=== PATIENT | male | born 1940 | race Caucasian/White ===

== ENCOUNTER 2024-03-03 20:32 | Outpatient (CLI) | payer MEDICARE, SELFPAY ==
--- OUTSIDE RECORDS SUMMARY | 2024-03-03 20:36 | XMS_ITS | Clinical Summary ---
Author Name Unknown Organization [facility] Address [place], [place] [address] Care Team Providers Care Credit Collection Associate Name Role Phone Darwin Catalan MD Primary Care Provider Darwin Becker MD Unavailable [phone] Allergies Active Allergy Reactions Criticality Noted Date Comments Fluorescein-Benoxinate *Unknown - Pt Doesn't Remember 11/15/2018 Pt reports that is unaware of this allergy Fluorometholone *Unknown,Edema 07/18/2019 Lisinopril Cough 06/20/2018 Proparacaine *Unknown - Pt Doesn't Remember 11/15/2018 Pt reports that is unaware of this allergy Medications Medication Sig Dispensed Refills Start Date End Date Status albuterol HFA (PROAIR HFA) 90 mcg/actuation inhalerIndications: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 1 Inhaler 3 4 Active lancets (ONETOUCH ULTRASOFT LANCETS)Indications:Con trolled type 2 diabetes mellitus without complication, unspecified snf insulin use status Dispense as covered per patient insurance. 3 Times per day. Dx: E11.9 300 Each 3 8 Active NebulizerIndications:Pn eumonia of left lung due to infectious organism, unspecified part of lung,Bronchospasm Nebulizer, disposable neb kit x 4, reuseable neb kit x 1, mask x 1, filters x 1. Frequency of use: daily; Medication: DuoNeb length of need: 12 months 1 Device 8 Active ONETOUCH ULTRA BLUE TEST STRIP stripIndications:Type 2 diabetes mellitus without complication, without long-term current use of insulin (HC) TEST TWO TIMES A DAY 200 Each 3 0 Active rivaroxaban (XARELTO) 15 mg tab tabletIndications:New onset atrial fibrillation (HC) Take 1 tablet by mouth once daily with evening meal. 90 tablet 3 0 Active metoprolol tartrate (LOPRESSOR) 50 mg tabletIndications:Atria l fibrillation with RVR (HC),Sepsis, due to unspecified organism, unspecified whether acute organ dysfunction present (HC),Essential hypertension Take 1 Tablet (50 mg) by mouth 2 times daily. 180 tablet. 3 1 Active glipiZIDE (GLUCOTROL) 5 mg tabletIndications:Diabe austen mellitus without complication (HC) Take 1 Tablet (5 mg) by mouth once daily before a meal. 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 12 g 3 3 Active atorvastatin (LIPITOR) 40 mg tabletIndications:Cardi ovascular disease Take 1 Tablet (40 mg) by mouth at bedtime. 90 Tablet 4 3 Active nitroglycerin (NITROSTAT) 0.4 mg sublingual tabletIndications:Cardi ovascular disease Place 1 Tablet (0.4 mg) under the tongue every 5 minutes if needed for Chest Pain. 3 Dose Limit per chest pain episode. Do not crush or chew. 3 Tablet 1 3 Active omeprazole 20 mg tabletIndications:Chron ic GERD Take 1 Tablet (20 mg) by mouth once daily. 90 Tablet 3 3 Active torsemide (DEMADEX) 10 mg tabletIndications:Pulmo nary HTN (HC) Take 1 Tablet (10 mg) by mouth once daily. 90 Tablet 3 3 Active calcitrioL (ROCALTROL) 0.25 mcg capsuleIndications:Seco ndary hyperparathyroidism (HC) Take one capsule (0.25 mg) three times a week (on Mondays, Wednesdays, and Fridays). 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 2ND CHOICE OR WHEEZING 2ND CHOICE. 540 mL 5 3 Active clopidogreL (PLAVIX) 75 mg tabletIndications:NSTEM I (non-ST elevated myocardial infarction) (HC) Take 1 Tablet (75 mg) by mouth once daily. 90 Tablet 3 3 Active clobetasol cream 0.05% (TEMOVATE) 0.05 % cream APPLY TO AFFECTED AREA ON BODY TWICE A DAY FOR 2 WEEKS , TAKE 2 WEEK BREAK THEN REPEAT NEEDED FOR FLARES 3 Active guaiFENesin (MUCINEX) 600 mg Extended-Release tablet Take 1 Tablet by mouth two times daily. 3 Active acetaminophen (TYLENOL EXTRA STRGTH) 500 mg tabletIndications:Acute gout of right foot, unspecified cause Take 1 Tablet (500 mg) by mouth every 6 hours if needed for Pain. Max acetaminophen dose: 4000mg in 24 hrs. 20 Tablet 4 Active allopurinoL (ZYLOPRIM) 300 mg tablet Take 300 mg by mouth once daily. 4 03/31/20 24 Active predniSONE (DELTASONE) 10 mg tabletIndications:Acute idiopathic gout of right ankle Take 1 Tablet (10 mg) by mouth once daily with a meal. Use as needed for gout flare up. 30 Tablet 4 Active spironolactone (ALDACTONE) 50 mg tabletIndications:Pulmo nary HTN (HC),SOB (shortness of breath) TAKE ONE-HALF TABLET BY MOUTH EVERY DAY -PT DUE FOR FOLLOW UP WITH CARDIOLOGY 45 Tablet 3 4 Active benzonatate (TESSALON) 200 mg capsuleIndications:Acut e cough,Cough, unspecified type TAKE ONE CAPSULE BY MOUTH THREE TIMES A DAY NEEDED FOR COUGH 30 Capsule 3 4 Active Active Problems Patient Care Coordination No te Formatting of this note migh t be different from the original. Watching grandkids grow up and family is what matters most to Chago. 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 What are Chago's challenges, stressors, or barriers? Weight, knee Problem Noted Date Diagnosed Date Secondary hyperparathyroidism 11/15/2023 HAIDER (acute kidney injury) 11/07/2023 COPD exacerbation 11/07/2023 NSTEMI (non-ST elevated myocardial infarction) 1 12/11/2022 Acute respiratory distress due to pneumonia 06/05 Arthritis of right glenohumeral joint 03/13/2023 Pulmonary HTN 02/08/2022 CKD (chronic kidney disease) stage 4, GFR 15-29 ml/min 02/08/2022 Coronary artery disease invo lving [place] coronary artery of [place] heart without angina pectoris 02/08/2022 Chronic left shoulder pain 02/08/2022 Arthritis of right knee 11/21/2021 Acquired varus deformity knee, right 11/21/2021 History of left knee replacement 11/21/2021 Arthritis of left acromioclavicular joint 2020 Arthritis of left glenohumeral joint 07/01/2021 Chronic renal disease, stage III 07/12/2020 Overview: Component Latest Ref Rng & Units 06/06/2020 06/07/2020 06/27/2020 06/28/2020 CREATININE 0.72 - 1.25 mg/dL 1.46 (H) 1.36 (H) 1.30 (H) 1.37 (H) BUN/CREAT RATIO 10 - 20 21 (H) 22 (H) 17 15 GFR if >60 ml/min/1.73m2 56 (L) >60 >60 >60 GFR if not >60 ml/min/1.73m2 46 (L) 50 (L) 53 (L) 50 (L) Component Latest Ref Rng & Units 07/05/2020 07/07/2020 CREATININE 0.72 - 1.25 mg/dL 1.70 (H) 1.78 (H) BUN/CREAT RATIO 10 - 20 22 (H) 20 GFR if >60 ml/min/1.73m2 47 (L) 45 (L) GFR if not >60 ml/min/1.73m2 39 (L) 37 (L) Iron deficiency anemia due to chronic blood loss 06/29/2020 Chronic atrial fibrillation 06/05/2020 Mixed hyperlipidemia 06/05/2020 Acute on chronic diastolic CHF (congestive heart failure) 06/04/2020 HUMBLE PSG 08/26/2019 AHI-26 09/05/2019 Hypoxia 12/20/2018 ACP (advance care planning) 11/21/2018 Overview: Patient has identified Health Care Agent(s): Yes Add Health Care Agents: Yes Health Care Agent(s): Primary Health Care Agent: Clarisa Navarro Relationship: Granddaughter (c) Secondary Health Care Agent: Nilo Abel Relationship: Daughter (c) Patient has Advance Care Plan Documents (Health Care Directive, POLST): Yes Advance Care Plan Documents: Health Care Directive Patient has identified Specific Treatment Preferences: Yes How have preferences been verified: verbal and HCD Specific Treatment Preferences: a.) Code Status: CPR/Attempt Resuscitation If in a vegetative state, I would want all the treatments recommended by my health care team until they agree that such treatments are harmful and no longer helpful. Tri Joshua, Care Guide, ................11/21/2018 10:08 AM Anticoagulation monitoring, INR range 2-3 2016 Morbid obesity 08/30/2016 Pulmonary nodules 01/03/2015 Adenomatous colon polyp 01/01/2014 Type II diabetes mellitus with complication 05/06 Vascular disease 10/09/2008 Thrombocytopenia 12/06/2007 Overview: possible drug related HYPERTENSION 11/06/2006 Asthma 11/06/2006 Hyperlipidemia 11/06/2006 GERD with esophagitis Overview: EGD Dysphagia Resolved Problems Problem Noted Date Diagnosed Date Resolved Date Type 2 diabetes mellitus wit h stage 3 chronic kidney disease, with long-term current use of insulin, unspecified whether stage 3a or 3b CKD 11/15/2023 02/20/2024 HUMBLE (obstructive sleep apnea) 10/10/2023 02/20/2024 SOB (shortness of breath) 02/08/2022 Iron deficiency anemia 06/29/202008/07 Longstanding persistent atrial fibrillation 06/29/2020 08/07/2022 Chronic respiratory acidosis 06/28/2020 02/20/2024 Pneumonia due to infectious organism 06/27/2020 08/07/2022 COPD with acute exacerbation 06/05/2020 08/07/2022 Viral sepsis 06/04/2020 08/07/2022 Lactic acid increased 06/04/20202021 Acute aspiration pneumonia 06/04/2020 1 Suspected COVID-19 virus infection 06/04/2020 08/07/2022 Sepsis with acute organ dysfunction 06/04/2020 08/07/2022 COPD with acute exacerbation 12/20/2018 08/07/2022 Atrial fibrillation 03/29/2017 08/07/20 22 Atrial fibrillation, unspecified type 03/29/2017 08/07/2022 Left arm pain 12/24/2014 08/07/2022 ARTERIOSCLEROTIC CARDIOVASCULAR DISEASE 11/06/2006 02/20/2024 Chronic airway obstruction, not elsewhere classified 11/06/2006 08/07/2022 History of colon polyps 02/03 Atrial fibrillation 08/07/20 22 Atrial fibrillation with RVR 08/07/2022 Encounters Date Type Department Care Team Description 02/20/2024 10:30 AM CDT Office Visit [facility] [address] [place] [address] Jos Delgadillo MD Sleep Follow-up 02/20/2024 Travel 02/13/2024 10:00 AM CDT Office Visit [facility] [address] [phone] Minor York MD Follow Up 02/13/2024 Travel 02/06/2024 10:00 AM CDT Office Visit [address] [phone] Darwin Catalan MD Toe Pain/problem (Right great toe painful x 1 day); Derm Problem (Bruising ) 02/06/2024 Travel 02/06/[address] [place] [address] Darwin Catalan MD Appointment (RT ARM BRUISING / PER TRIAGE) 02/06/2024 Nurse Triage [address] [place] [address] Darwin Catalan MD Skin Problem 02/06/[address] [place] [address] Darwin Catalan MD Error-please disregard 01/29/[address] [place] [address] Darwin Catalan MD Refill Request (Benzonatate) 01/16/[address] [place] [address] Darwin Catalan MD Results 01/12/[address] [place] [address] Darwin Catalan MD Refill Request (Spironolactone) 01/10/2024 10:30 AM MANAGER DRUG Orders Only [address] [place] [address] Lab, [facility] 01/10/2024 Travel 01/02/2024 1:00 PM MANAGER DRUG Office Visit [address] [place] [address] Darwin Catalan MD Hospital F/U (DOD 12/26/23 Gout ) 01/02/2024 Travel 12/31/2023 12:48 PM MANAGER DRUG - 12/31/2023 11:59 PM MANAGER DRUG Hospital Encounter [facility] [address] [facility] [place] [address] Darwin Catalan MD 12/31/2023 Travel 12/26/2023 10:35 AM MANAGER DRUG - 12/26/2023 11:48 AM MANAGER DRUG Emergency [facility] [address] [facility] [place] [address] Minor Winters MD Acute gout of right foot, unspecified cause (Primary Dx) Discharge Disposition: Home Self Care 12/26/2023 Telephone [facility] [address] [place] [address] Darwin Catalan MD Appointment 12/26/2023 Travel 12/24/2023 12:47 PM MANAGER DRUG - 12/24/2023 11:59 PM MANAGER DRUG Hospital Encounter [facility] [address] [facility] [place] [address] Darwin Catalan MD 12/24/2023 Travel 12/21/2023 12:50 PM MANAGER DRUG - 12/21/2023 11:59 PM MANAGER DRUG Hospital Encounter [facility] [address] [facility] [place] [address] Darwin Catalan MD 12/21/2023 Travel 12/19/2023 12:50 PM MANAGER DRUG - 12/19/2023 11:59 PM MANAGER DRUG Hospital Encounter [facility] [address] [facility] [place] [address] Darwin Catalan MD 12/19/2023 Travel 12/18/2023 Refill [facility] [address] [place] [address] Darwin Catalan MD Refill Request (Benzonatate) 12/17/2023 12:42 PM MANAGER DRUG - 12/17/2023 11:59 PM MANAGER DRUG Hospital Encounter [facility] [address] [place] [address] Darwin Catalan MD 12/17/2023 Travel 12/14/2023 12:47 PM MANAGER DRUG - 12/14/2023 11:59 PM MANAGER DRUG Hospital Encounter [facility] [address] [facility] [place] [address] Darwin Catalan MD 12/14/2023 Travel 12/13/2023 Telephone [facility] [address] [place] [address] Darwin Catalan MD 12/12/2023 1:02 PM MANAGER DRUG - 12/12/2023 11:59 PM MANAGER DRUG Hospital Encounter [facility] [address] [facility] [place] [address] Darwin Catalan MD 12/12/2023 Travel 12/10/2023 2:40 PM MANAGER DRUG Office Visit [facility] [address] [place] [address] Darwin Catalan MD Medicare ANNUAL (subsequent) Visit; Diabetes 12/10/2023 Travel 12/07/2023 1:02 PM MANAGER DRUG - 12/07/2023 11:59 PM MANAGER DRUG Hospital Encounter [facility] [address] [place] [address] Darwin Catalan MD 12/07/2023 Travel 12/05/2023 1:01 PM MANAGER DRUG - 12/05/2023 11:59 PM MANAGER DRUG Hospital Encounter [facility] [address] [place] [address] Darwin Catalan MD 12/05/2023 Travel 12/03/2023 1:02 PM MANAGER DRUG - 12/03/2023 11:59 PM MANAGER DRUG Hospital Encounter [facility] [address] [place] [address] Darwin Catalan MD 12/03/2023 Travel from Last 3 Months Immunizations Name Administration Dates Next Due AMB Influenza, IIV3 (Age >=3 years)(Flu Clinic Only) 08/25/2009 COVID-19 Vaccine Spikevax (M oderna 50mcg/0.5mL) 12YO+ [id number] Formula PF 08/30/2023 COVID-19 vaccine ([employer] 30mcg/0.3mL) 12YO+ BIVALENT PF, MDV 07/19/2022 COVID-19 vaccine ([employer] 30mcg/0.3mL) PF MDV 12/27/2020,12/05/2020 Influenza A (H1N1), Inactiva lm (Age >=3 Years) 11/17/2009 Influenza Virus, Unspecified 07/25/2013, 11/05/2011,08/05/2011,2009,08/05/2009,08/05/2008,08/05/2007 Influenza, High-dose Inactivated 07/21/2016 Influenza, IIV3 (Age >=3 years) 08/05/20 12,07/20/2011,08/25/2009,2007,09/03/2007,09/18/2006,08/21/2005,1 ,08/29/2003,09/19/2002 Influenza, IIV4 07/22/2014 Influenza, Inactivated AIIV4 (Age 65+ Years) Preserv Free 07/25/2023,07/19/2022,07/22/2021,2019 Influenza, Inactivated IIV3 (Age 65+ Years) Preserv Free 07/16/2019,08/15/2018,08/09/2017 Pneumococcal Poly,23-Valent (Pneumovax) 08/15/2018,10/07/2008,09/19/2002,2001 Pneumococcal conj 13-Valent (Prevnar 13) 01/19/2016 Pneumococcal, Unspecified 08/05/2007 TD, UNSPECIFIED 11/05/2005 Td (Age >=7 Years) 11/26/2002 Tdap 08/14/2019,07/25/2013 Zoster (Shingrix-RZV, recombinant) 12/26/2018, Zoster (Zostavax-ZVL, live) 04/12/2012 Family History Medical History Relation Name Comments Cancer-colon Brother Cancer-colon Mother AND AUNT Heart Disease Mother ASCVD Stroke Mother Diabetes Other 1 FAMILY H/O Cancer Other 2 LUNG UNCLE Relation Name Status Comments Brother Mother Other 1 Other 2 Social History Tobacco Use Types Packs/Day Years Used Date Smoking Tobacco: Former Cigarettes 2 24 0 02/04/1956 - 11/11/1979 Passive Smoke Exposure: Past Smokeless Tobacco: Never Tobacco Cessation:Counseling Given: Not Answered Comments:quit in the Alcohol Use Standard Drinks/Week Comments No 0 (1 standard drink = 0.6 oz pur e alcohol) PHQ-2 Answer Date Recorded PHQ-2 TOTAL SCORE 0 12/10/2023 Social Connections Answer Date Recorded Frequency of Communication with Friends and Fami ly 0 06/18/2023 Financial Resource Strain Answer Date R ecorded Difficulty of Paying Living Expenses 3 06/18/2023 Difficulty of Paying Living Expenses Not on file 06/18/2023 Food Insecurity Answer Date Recorded Worried About Running Out of Food in the Last Ye ar 1 06/18/2023 Transportation Needs Answer Date Record ed Lack of Transportation (Medical) 1 06/18/2023 Housing Stability Answer Date Recorded Unable to Pay for Housing in the Last Year 1 06/18/2023 Sex and Gender Information Value Date Recorded Sex Assigned at Not on file Gender Identity Not on file Sexual Orientation Not on file Obstetrics History Last Filed Vital Signs Vital Sign Reading Time Taken Comments Blood Pressure 91/58 02/20/2024 10:15 AM CDT Pulse 70 02/20/2024 10:15 AM CDT Temperature 36.4 ??C (97.6 ??F) 12/26/2023 1 0:41 AM MANAGER DRUG Respiratory Rate 18 12/26/2023 10:4 1 AM MANAGER DRUG Oxygen Saturation 95% 02/20/2024 10: 15 AM CDT Inhaled Oxygen Concentration - - Weight 88.4 kg (194 lb 12.8 oz) 024 10:15 AM CDT Height 172.7 cm (5' 8) 02/20/2024 10:1 5 AM CDT Body Mass Index 29.62 02/20/2024 10:15 AM CDT Plan of Treatment Upcoming Encounters Date Type Department Care Team (Late st Contact Info) Description 05/14/2024 3:30 PM CDT Office Visit [facility] [address] [place] [address] Jos Delgadillo MD [address] [place] [address] Health Maintenance Due Date Last Done Comments Influenza for age 65+ 07/06/2024 07/25/2023 , 07/19/2022, 07/22/2021, Additional history exists Medicare Wellness for age 65+ 12/10/2024, 11/02/2022, 12/03/2019, Additional history exists Depression screening for age 12+ 12/13/2024 12/13/2023, 12/12/2023, 12/10/2023, Additional history exists BMI (ht and wt on same day) for age 18+ 02/19/2025 02/20/2024, 02/06/2024, 01/02/2024, Additional history exists Tetanus booster 08/14/2029 08/14/2019, 07/07, 11/05/2005, Additional history exists Pneumococcal series for age 65+ Completed 08/15/2018, 01/19/2016, 10/07/2008, Additional history exists Zoster (shingles) series for age 50+ Completed 12/26/2018, 10/18/2018, 04/12/2012 Tdap Completed 08/14/2019, 07/25/2013 COVID-19 vaccine series Completed 08/30/20, 07/19/2022, 09/19/2021, Additional history exists Medical Devices Implanted Type Area [employer] Electrical Systems Designer Device Identifier Shelf Expiration Date Model / Serial / Lot Post Shoulder Glenoid 6.5x30mm Perform+ Rev - [id number] Implanted:Qty: 1 on 05/17/2022 by Stuart Spring MD at [facility] Left: Shoulder [employer] [id number] / / Screw Shoulder 26mm Perform+ Periph - [id number] Implanted:Qty: 2 on 05/17/2022 by Stuart Spring MD at [facility] Left: Shoulder [employer] [id number] / / Screw Shoulder 22mm Perform+ Periph - [id number] Implanted:Qty: 1 on 05/17/2022 by Stuart Spring MD at [facility] Left: Shoulder [employer] [id number] / / Baseplate Glenoid 29mm 15 Deg Perform+ Full Wedge - [id number] Implanted:Qty: 1 on 05/17/2022 by Stuart Spring MD at [facility] Left: Shoulder [employer] 08/31/2026 [id number] / [id number] / Glenoid 39mm Perform+ Rev - [id number] Implanted:Qty: 1 on 05/17/2022 by Stuart Spring MD at [facility] Left: Shoulder [employer] 09/09/2026 [id number] / [id number] / Baseplate Hum Sz 0 Ascend Rev Flex Hi Off - [id number] Implanted:Qty: 1 on 05/17/2022 by Stuart Spring MD at [facility] Left: Shoulder [employer] 12/20/2026 [id number] / [id number] / Stem Hum Sz 5b Ascend Flex Std - [id number] Implanted:Qty: 1 on 05/17/2022 by Stuart Spring MD at [facility] Left: Shoulder [employer] 05/25/2026 [id number] / [id number] / Liner Hum Sz 39mm +6 Ascend Flex - [id number] Implanted:Qty: 1 on 05/17/2022 by Stuart Spring MD at [facility] Left: Shoulder [employer] 12/27/2025 [id number] / [id number] / Procedures Procedure Name Priority Date/Time Associated Diagnosis Comments CBC W PLT NO DIFF Routine 01/10/2024 10: 07 AM MANAGER DRUG Other iron deficiency anemia SCAN-CARDIAC REHABILITATION 12/31/2023 1:16 PM MANAGER DRUG C-REACTIVE PROTEIN STAT 12/26/2023 11 :13 AM MANAGER DRUG URIC ACID STAT 12/26/2023 11:13 AM MANAGER DRUG BASIC METABOLIC PANEL STAT 12/26/2023 11:13 AM MANAGER DRUG CBC W PLT NO DIFF STAT 12/26/2023 11: 13 AM MANAGER DRUG SCAN-CARDIAC REHABILITATION 12/24/2023 1:24 PM MANAGER DRUG SCAN-CARDIAC REHABILITATION 12/21/2023 1:12 PM MANAGER DRUG SCAN-CARDIAC REHABILITATION 12/19/2023 1:12 PM MANAGER DRUG SCAN-CARDIAC REHABILITATION 12/17/2023 1:24 PM MANAGER DRUG SCAN-CARDIAC REHABILITATION 12/14/2023 1:24 PM MANAGER DRUG SCAN-CARDIAC REHABILITATION 12/12/2023 1:18 PM MANAGER DRUG URINALYSIS MICROSCOPIC Routine 3:43 PM MANAGER DRUG Essential hypertension PROTEIN/CREAT RATIO,URINE Routine 12/10/2023 3:43 PM MANAGER DRUG Type 2 diabetes mellitus with stage 3 chronic kidney disease, without long-term current use of insulin, unspecified whether stage 3a or 3b CKD (HC) UA W/ SEDIMENT EXAM REFLEXED PER CRITERIA Routine 12/10/2023 3:43 PM MANAGER DRUG Essential hypertension HEMOGLOBIN A1C Routine 12/10/2023 3:21 PM MANAGER DRUG Type 2 diabetes mellitus with stage 3 chronic kidney disease, without long-term current use of insulin, unspecified whether stage 3a or 3b CKD (HC) LIPID PANEL W REFLEX MEASURED LDL Routine 12/10/2023 3:21 PM MANAGER DRUG Essential hypertension TSH Routine 12/10/2023 3:21 PM MANAGER DRUG Mixed hyperlipidemia CBC W PLT NO DIFF Routine 12/10/2023 3:2 1 PM MANAGER DRUG Essential hypertension BASIC METABOLIC PANEL Routine 12/10/2023 3:21 PM MANAGER DRUG Essential hypertension SCAN-CARDIAC REHABILITATION 12/07/2023 1:27 PM MANAGER DRUG SCAN-CARDIAC REHABILITATION 12/05/2023 1:22 PM MANAGER DRUG SCAN-CARDIAC REHABILITATION 12/03/2023 1:30 PM MANAGER DRUG from Last 3 Months Results * (ABNORMAL) CBC W PLT NO DIFF (01/10/2024 10:07 AM MANAGER DRUG) Only the most recent of3 resultswithin the time period is included. Pathologist [facility] WHITE BLOOD COUNT 11.6(H) 4.5 - 11.0 thou/cu mm 01/10/2024 10:23 AM [facility] RED BLOOD COUNT 3.63(L) 4.30 - 5.90 mil/cu mm 01/10/2024 10:23 AM [facility] HEMOGLOBIN 9.6(L) 13.5 - 17.5 g/dL 01/10/2024 10:23 AM [facility] HEMATOCRIT 33.0(L) 37.0 - 53.0 % 01/10/2024 10:23 AM [facility] MCV 91 80 - 100 fL 01/10/2024 10:23 AM [facility] MCH 26.4 26.0 - 34.0 pg 01/10/2024 10:23 AM [facility] MCHC 29.1(L) 32.0 - 36.0 g/dL 01/10/2024 10:23 AM [facility] RDW 18.1(H) 11.5 - 15.5 % 01/10/2024 10:23 AM [facility] PLATELET COUNT 304 140 - 440 thou/cu mm 01/10/2024 10:23 AM [facility] MPV 9.0 6.5 - 11.0 fL 01/10/2024 10:23 AM [facility] Blood BLOOD SPECIMEN / Unknown Venipuncture / Unknown 01/10/2024 10:07 AM MANAGER DRUG 01/10/2024 10:08 AM MANAGER DRUG Darwin Catalan MD HEMATOLOGY [facility] [address] [place] [address] * SCAN-CARDIAC REHABILITATION (12/31/2023 1:16 PM MANAGER DRUG) Only the most recent of10 resultswithin the time period is included. Scanner OTHER * C-REACTIVE PROTEIN (12/26/2023 11:13 AM MANAGER DRUG) C-REACTIVE PROTEIN <0.3 <0.5 mg/dL 12/26/2023 11:38 AM [facility] Blood BLOOD SPECIMEN / Unknown Venipuncture / Unknown 12/26/2023 11:13 AM MANAGER DRUG 12/26/2023 11:16 AM MANAGER DRUG Minor Winters MD CHEMISTRY [facility] [address] [place] [address] * (ABNORMAL) URIC ACID (12/26/2023 11:13 AM MANAGER DRUG) URIC ACID 9.2(H) 3.4 - 7.0 mg/dL 12/26/2023 11:35 AM [facility] Blood BLOOD SPECIMEN / Unknown Venipuncture / Unknown 12/26/2023 11:13 AM MANAGER DRUG 12/26/2023 11:16 AM MANAGER DRUG Minor Winters MD CHEMISTRY [facility] [address] [place] [address] * (ABNORMAL) BASIC METABOLIC PANEL (12/26/2023 11:13 AM MANAGER DRUG) Only the most recent of2 resultswithin the time period is included. SODIUM 143 136 - 145 mmol/L 12/26/2023 11:35 AM [facility] POTASSIUM 4.8 3.5 - 5.1 mmol/L 12/26/2023 11:35 AM [facility] CHLORIDE 107 98 - 107 mmol/L 12/26/2023 11:35 AM [facility] CO2,TOTAL 27 22 - 29 mmol/L 12/26/2023 11:35 AM [facility] ANION GAP 9 5 - 18 12/26/2023 11:35 AM [facility] GLUCOSE 109(H) 70 - 99 mg/dL 12/26/2023 11:35 AM [facility] CALCIUM 9.2 8.8 - 10.2 mg/dL 12/26/2023 11:35 AM [facility] BUN 31(H) 8 - 23 mg/dL 12/26/2023 11:35 AM [facility] CREATININE 2.31(H) 0.70 - 1.20 mg/dL 12/26/2023 11:35 AM [facility] BUN/CREAT RATIO 13 10 - 20 11:35 AM [facility] eGFR 27(L) >90 mL/min/1.7 3m2 12/26/2023 11:35 AM MANAGER DRUG [facility] Comment:As of 2022, eG FR is calculated by the CKD-EPI creatinine equation without race adjustment. ??eGFR can be influenced by muscle mass, exercise, and diet. ??The reported eGFR is an estimation only and is only applicable if the renal function is stable. Blood BLOOD SPECIMEN / Unknown Venipuncture / Unknown 12/26/2023 11:13 AM MANAGER DRUG 12/26/2023 11:16 AM MANAGER DRUG Minor Winters MD CHEMISTRY Performing Organization Address City/[facility]/ZIP Co de Phone Number [facility] [address] [place] [address] * (ABNORMAL) URINALYSIS MICROSCOPIC (12/10/2023 3:43 PM MANAGER DRUG) RBC 0-2 0-2, None Seen /HPF 12/10/2023 4:00 PM [facility] WBC 11-25(A) 0-2, 3-5, None Seen /HPF 12/10/2023 4:00 PM [facility] BACTERIA Few None Seen, Rare, Few Bacteria/ HPF 12/10/2023 4:00 PM [facility] EPITHELIAL CELLS Few None Seen, Few Epi/HPF 12/10/2023 4:00 PM [facility] WHITE CELL CLUMPS Present(A) (none) 12/10/2023 4:00 PM [facility] Urine URINE SPECIMEN / Unknown Non-Blood / Unknown 12/10/2023 3:43 PM MANAGER DRUG 12/10/2023 3:43 PM MANAGER DRUG Darwin Catalan MD URINE Performing Organization Address [facility]/ZIP Co de Phone Number [facility] [address] [place] [address] * PROTEIN/CREAT RATIO,URINE (12/10/2023 3:43 PM MANAGER DRUG) PROTEIN QUANT,RAND URINE 7 1 - 14 mg/dL 12/10/2023 4:24 PM [facility] CREAT,RANDOM URINE 68.4 39.0 - 259.0 mg/dL 12/10/2023 4:24 PM [facility] PROT/CREAT RATIO,UR 0.1 <0.2 12/10/2023 4:24 PM [facility] Urine URINE SPECIMEN / Unknown Non-Blood / Unknown 12/10/2023 3:43 PM MANAGER DRUG 12/10/2023 3:43 PM MANAGER DRUG Darwin Catalan MD URINE [facility] [address] [place] [address] * (ABNORMAL) UA W/ SEDIMENT EXAM REFLEXED PER CRITERIA (12/10/2023 3:43 PM MANAGER DRUG) COLOR Yellow Yellow Color 12/10/2023 3:57 PM [facility] CLARITY Clear Clear Clarity 12/10/2023 3:57 PM [facility] SPECIFIC GRAVITY,URINE 1.015 1.010, 1.015, 1.020, 1.025 12/10/2023 3:57 PM [facility] PH,URINE 5.5 6.0, 7.0, 8.0, 5.5, 6.5, 7.5, 8.5 12/10/2023 3:57 PM [facility] UROBILINOGEN, QUALITATIVE Normal Normal EU/dl 12/10/2023 3:57 PM [facility] PROTEIN, URINE Negative Negative mg/dL 12/10/2023 3:57 PM [facility] GLUCOSE, URINE Negative Negative mg/dL 12/10/2023 3:57 PM [facility] KETONES,URINE Negative Negative mg/dL 12/10/2023 3:57 PM [facility] BILIRUBIN,URI NE Negative Negative 12/10/2023 3:57 PM [facility] OCCULT BLOOD,URINE Negative Negative 12/10/2023 3:57 PM [facility] NITRITE Negative Negative 12/10/2023 3:57 PM [facility] LEUKOCYTE ESTERASE Small(A) Negative 12/10/2023 3:57 PM [facility] Urine URINE SPECIMEN / Unknown Non-Blood / Unknown 12/10/2023 3:43 PM MANAGER DRUG 12/10/2023 3:43 PM MANAGER DRUG Darwin Catalan MD URINE Performing Organization Address City/[facility]/ZIP Co de Phone Number [facility] [address] [place] [address] * (ABNORMAL) LIPID PANEL W REFLEX MEASURED LDL (12/10/2023 3:21 PM MANAGER DRUG) CHOLESTEROL,TOTAL 118 100 - 199 mg/dL 12/10/2023 4:25 PM [facility] Comment: Cholesterol, Total Reference Ranges Desirable <200 mg/dL Borderline 200-239 mg/dL High >=240 mg/dL TRIGLYCERIDES 139 <150 mg/dL 12/10/2023 4:25 PM [facility] HDL CHOLESTEROL 29(L) >40 mg/dL 4:25 PM [facility] NON-HDL CHOLESTEROL 89 <145 mg/dl 12/10/2023 4:25 PM [facility] CHOL/HDL RATIO 4.07 <4.50 12/10/2023 4:25 PM [facility] LDL CHOLESTEROL 61 <=130 mg/dL 12/10/2023 4:25 PM [facility] VLDL CHOLESTEROL 28 <=30 mg/dL 12/10/2023 4:25 PM [facility] PROVIDER ORDERED STATUS RANDOM 12/10/2023 4:25 PM [facility] Blood BLOOD SPECIMEN / Unknown Venipuncture / Unknown 12/10/2023 3:21 PM MANAGER DRUG 12/10/2023 3:24 PM MANAGER DRUG Darwin Catalan MD CHEMISTRY [facility] [address] [place] [address] * (ABNORMAL) TSH (12/10/2023 3:21 PM MANAGER DRUG) TSH 5.18(H) 0.27 - 4.20 uIU/mL 12/10/2023 4:25 PM MANAGER DRUG [facility] Blood BLOOD SPECIMEN / Unknown Venipuncture / Unknown 12/10/2023 3:21 PM MANAGER DRUG 12/10/2023 3:24 PM MANAGER DRUG Narrative [facility] - 12/10/2023 4:25 PM MANAGER DRUG In Adults, TSH values between 5.00 and 10.00 uIU/ml do not necessarily indicate the presence of Hypothyroidism. Correlation with clinical findings such as presence of goiter and/or Thyroperoxidase (TPO) Antibody may be helpful. For more information please refer to WALTER 2004; 291: 228-238. Darwin Catalan MD CHEMISTRY [facility] [address] [place] [address] * (ABNORMAL) HEMOGLOBIN A1C MONITORING (POCT) (12/10/2023 3:21 PM MANAGER DRUG) HEMOGLOBIN A1C MONITORING (POCT) 7.1(H) <=6.4 % 12/10/2023 3:55 PM MANAGER DRUG [facility] Blood BLOOD SPECIMEN / Unknown Venipuncture / Unknown 12/10/2023 3:21 PM MANAGER DRUG 12/10/2023 3:24 PM MANAGER DRUG Narrative [facility] - 12/10/2023 3:55 PM MANAGER DRUG ? (<=6.9%) ? Indicates good control ? (7.0% to 7.9%) ? Indicates fair control ? (>=8.0%) ? Indicates poor control ?? NOTE: ??These thresholds are guidelines and ?individual targets may vary. Falsely low levels may be seen with: Recent Transfusion, Recent Significant Blood Loss, Hemolytic Diseases, or Falsely elevated levels may be seen with: Untreated Anemias, Splenectomy ? Darwin Catalan MD [facility]STRY [facility] [address] [place] [id number] from Last 3 Months Advance Directives Documents on File Type Date Recorded Patient Rim Turning Finisher Expl anation POLST 11/09/2023 Healthcare Directive 11/22/2018 1:54 PM [facility] DIRECTIVE, 11/21/2018 Healthcare Directive 11/10/2011 [facility] ARE DIRECTIVE, 11/10/2011 * Full Code (Latest Code Status on File) Date Activated Date Inactivated Comments 11/09/2023 2:22 PM 11/11/2023 1:23 PM Question Answer Comments Code Status Discussion: Reviewed Preferences * DNR Date Activated Date Inactivated Comments 11/08/2023 3:51 PM 11/09/2023 2:22 PM Question Answer Comments Code Status Discussion: Reviewed Preferences * DNR Date Activated Date Inactivated Comments 11/08/2023 3:47 PM 11/08/2023 3:51 PM Question Answer Comments Code Status Discussion: Reviewed Preferences * Full Code Date Activated Date Inactivated Comments 11/07/2023 9:10 PM 11/08/2023 3:47 PM Question Answer Comments Code Status Discussion: Reviewed Preferences * Full Code Date Activated Date Inactivated Comments 10/10/2023 7:05 PM 10/12/2023 6:57 PM Question Answer Comments Code Status Discussion: Reviewed Preferences Healthcare Agents on File Name Relationship Healthcare Agent Relationshi p Communication [facility] Care Agent [phone] (Mobile) Care Teams Credit Collection Associate Relationship Specialty Start Date End Date Darwin Catalan MD [address] [place] [address] PCP - General 11/27/12 Darwin Becker MD [address] [phone] Consulting Physician Nephrology 04/23/23
--- OUTSIDE RECORDS SUMMARY | 2024-03-03 20:37 | XMS_ITS | Clinical Summary ---
Author Name Unknown Organization [facility] Address [address] [place] [phone] Phone Care Team Providers Care Drying Frame Operator Name Role Phone Darwin Catalan MD Primary Care Provider [phone] Allergies Active Allergy Reactions Criticality Noted Date Comments Fluorescein-Benoxinate Other (see comments) 09/2019 Pt reports that is unaware of this allergy Fluorometholone Other (see comments),Swelling 07/18/2019 Lisinopril Other (see comments) 06/20/2018 Proparacaine Other (see comments) 11/15/2018 Pt reports that is unaware of this allergy Medications Medication Sig Dispensed Refills Start Date End Date Status nitroglycerin (NITROSTAT) 0.[address] 0.4 mg under the tongue every 5 (five) minutes if needed for chest pain 0 05/24/2023 Active omeprazole OTC (PriLOSEC OTC) 20 MG EC tablet Take 20 mg by mouth 1 (one) time each day 0 05/24/2023 Active metoprolol tartrate (LOPRESSOR) 50 MG tablet Take 50 mg by mouth in the morning and 50 mg in the evening. 0 01/24/2021 Active Tiotropium [place] l 2.5-2.5 MCG/ACT aerosol solution Inhale 2 puffs in the morning. 0 03/16/2023 Active torsemide (DEMADEX) 10 MG tablet Take 10 mg by mouth in the morning. 0 05/24/2023 Active spironolactone (ALDACTONE) 50 MG tablet Take 25 mg by mouth in the morning. 0 11/06/2023 Active atorvastatin (LIPITOR) 40 MG tablet Take 40 mg by mouth in the morning. 0 05/24/2023 Active glipiZIDE (GLUCOTROL) 5 MG tablet Take 5 mg by mouth in the morning. 0 11/07/2022 Active ipratropium-albut tray (DUO-NEB) 0.5-2.5 mg/3 mL nebulizer solution Inhale 0 10/22/2023 Active albuterol HFA (PROVENTIL HFA;VENTOLIN HFA) 108 (90 Base) MCG/ACT inhaler Inhale 2 puffs 0 07/29/2014 Activ e famotidine (PEPCID) 40 MG tablet Take 40 mg by mouth in the morning. 0 07/02/2023 Active clobetasol (TEMOVATE) 0.05 % cream APPLY TO AFFECTED AREA ON BODY TWICE A DAY FOR 2 WEEKS , TAKE 2 WEEK BREAK THEN REPEAT NEEDED FOR FLARES 0 12/15/2022 Active clopidogrel (PLAVIX) 75 MG tablet Take 75 mg by mouth in the morning. 0 10/25/2023 Active acetaminophen (TYLENOL) 325 MG tablet Take 325 mg by mouth every 6 (six) hours if needed 0 Active predniSONE (DELTASONE) 20 MG tablet Take 40 mg by mouth in the morning. 0 11/25/2023 Active acetaminophen (TYLENOL) 500 MG tablet Take 1 Tablet (500 mg) by mouth every 6 hours if needed for Pain. Max acetaminophen dose: 4000mg in 24 hrs. 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 This was ordered by another provider. The flare has ceased following a course of prednisone. Discussion today regarding the fact that he does fit criteria to consider preventative therapy with the uricosuric. Most recent flare was his third flare which was rather severe. I discussed the complications of allopurinol therapy including the possibility for life-threatening allergic reaction, rash, and the possibility of inciting a gouty flare. He agreed to take on these risks and based on his GFR, incredibly reasonable to start him at 300 mg a day. Anemia in chronic kidney disease 12/30/2023 Overview: Overall unremarkable colonoscopy March 2019 (follow-up colonoscopy not recommended due to patient's advanced age). Normal upper endoscopy June 2021. Last Assessment & Plan: Overall downtrend of hemoglobin in the past 12 months. Lowest level to date at 9.1 on 12/26/2023. I would argue that this could potentially be contributing to his dyspnea on exertion? No recent iron panel with the 1 prior in January 2022 revealing a ferritin of 19. I note that patient had an upper endoscopy in June 2021 that revealed no evidence of bleeds or peptic ulcer disease with normal duodenum and a few gastric polyps were biopsied. Colonoscopy in March 2019 also performed that revealed several polyps that were removed, no bleeding, with the proceduralist recommending no further colonoscopy. No clinical evidence of bleeding such as melena, epistaxis, hematemesis, coffee-ground emesis, or bright red blood per rectum by history. He is on dual antiplatelet therapy increasing risk for bleeding course but also on chronically administered PPI. If patient is not offered any further recommendations by cardiology I would consider the following: - Based on the very low ferritin from January 2022, consider repeating the ferritin level and if less than 200, consider a trial of outpatient administered IV iron infusion. For example, iron sucrose at 200 mg/week for 5 weeks. If truly iron deficient based on ferritin level, I would imagine that providing supplemental IV iron should create an environment of increasing bone marrow capacity to create blood. - Would consider CHARLES administration if he is iron replete, there is no evidence of bleeding, and the globin descends below 9 g/dL. Chronic diastolic congestive heart failure 12/30 Overview: Echocardiogram from February 2002 with EF of 55-60%. Last Assessment & Plan: Continues to appear to tolerate chronically administered mineralocorticoid receptor antagonist. Well compensated on examination. See comments in the diabetes section regarding SGL 2 inhibitor class of medications. Additional RAAS inhibitors not recommended in view of compromised GFR and already high end of normal potassium values. Simple chronic bronchitis 12/30/2023 Last Assessment & Plan: Severe and longstanding. Not yet on home O2. Secondary hyperparathyroidism of renal origin Last Assessment & Plan: Thrice weekly administered calcitriol. Calcium levels appear appropriate. Calcitriol will be discontinued moving forward no further recommendations for this medication currently unless he progresses to ESRD. Phosphorus level at the next visit. Atherosclerotic heart diseas e of [place] coronary artery without angina pectoris 12/30/2023 Overview: Coronary angiogram October 2023 for NSTEMI followed by angioplasty and stenting of LAD to address the 90-95% stenosis; OM1 found to be chronically occluded and unable to be accessed with wire. Last Assessment & Plan: Still experiencing dyspnea on exertion. Unclear if this may be his known COPD or if coronary ischemia may still be in the differential. Also no improvement following 17 sessions of cardiac rehab. He appears to be incredibly well compensated on exam today with no evidence of decompensated heart failure. Will be visiting with cardiology in the next few weeks. Chronic kidney disease stage 4 07/12/2020 Overview: Baseline creatinine in the high ones-2 range most likely related to small vessel disease, hypertensive nephrosclerosis, diabetic glomerulosclerosis, and a contribution from cardiorenal physiology. Last Assessment & Plan: GFR remains stable overall. No electrolyte issues. Potassium is in fine condition as is his acid-base status. Therefore result to continue spironolactone as ordered at this time. If there is evidence of consistent hyperkalemia and/or deterioration of GFR, would keep a very low threshold to discontinue spironolactone on a permanent basis. We will follow-up with Lenny in 6 months. Type 2 diabetes mellitus wit h diabetic chronic kidney disease 06/01/2010 Last Assessment & Plan: He is certainly a patient to consider SGL 2 inhibitor class of medications being started. But I would refrain at this point due to his compromised GFR less than 30 mL/min. Otherwise defer further to PCP. Hypertensive chronic kidney disease, benign, with chronic kidney disease stage I through stage IV, or unspecified 11/06/2006 Last Assessment & Plan: Excellent control on current medication regimen. Continue. Encounters Date Type Department Care Team Description 01/01/2024 11:30 AM EST Office Visit [facility] [address] [place] [phone] Darwin Becker MD Chronic kidney disease stage 4 (HCC) (Primary Dx); Chronic diastolic congestive heart failure (HCC); Simple chronic bronchitis (HCC); Secondary hyperparathyroidism of renal origin (HCC); Chronic gout due to renal impairment, right ankle and foot, without tophus (tophi), not otherwise specified; Anemia in chronic kidney disease; Atherosclerotic heart disease of [place] coronary artery without angina pectoris, not otherwise specified; Type 2 diabetes mellitus with diabetic chronic kidney disease (HCC); Hypertensive chronic kidney disease, benign, with chronic kidney disease stage I through stage IV, or unspecified 12/25/2023 Office Communication [facility] [address] [place] [phone] Darwin Becker MD from Last 3 Months Immunizations Name Administration Dates Next Due Influenza Vaccine, Quadrival ent, Adjuvanted 07/25/2023,07/19/2022,07/22/2021, 020 Moderna Sars-cov-2 (Covid-19 ) Vaccine, Mrna, Chemo Protein 08/30/2023 Family History Medical History Relation Comments Cancer Brother colon Cancer Mother colon Heart disease Mother atherosclerotic Cardiovascular disease Cancer Mother's Brother lung Cancer Mother's Sister colon Relation Status Comments Brother Mother Mother's Brother Mother's Sister Social History Tobacco Use Types Packs/Day Years Used Date Smoking Tobacco: Former Cigarettes 2 24 0 [birth year]04/1956 - 11/11/1979 Smokeless Tobacco: Never Tobacco Cessation:Counseling Given: Not Answered Alcohol Use Standard Drinks/Week Comments Never 0 (1 standard drink = 0.6 oz pur e alcohol) Sex and Gender Information Value Date Recorded Sex Assigned at Not on file Gender Identity Not on file Sexual Orientation Not on file Last Filed Vital Signs Vital Sign Reading Time Taken Comments Blood Pressure 116/66 01/01/2024 11:41 AM HUMAN RESOURCES COORDINATOR Pulse 72 01/01/2024 11:41 AM HUMAN RESOURCES COORDINATOR Temperature - - Respiratory Rate - - Oxygen Saturation 96% 01/01/2024 11:41 AM HUMAN RESOURCES COORDINATOR Inhaled Oxygen Concentration - - Weight 92.1 kg (203 lb) 01/01/2024 11:41 AM HUMAN RESOURCES COORDINATOR Height 172.7 cm (5' 8) 01/01/2024 11:41 AM HUMAN RESOURCES COORDINATOR Body Mass Index 30.87 01/01/2024 11:41 AM HUMAN RESOURCES COORDINATOR Plan of Treatment Health Maintenance Due Date Last Done Comments Diabetes: Ophthalmology Exam 11/26/2023 08/02/2020 Diabetes: Pedal Pulse Checked 11/26/2023 Diabetes: Sensory Foot Exam 11/26/2023 Diabetes: Visual Foot Exam 11/26/2023 Diabetes: Hemoglobin A1C 03/09/2024 12/10/2023 Pneumococcal Vaccine: 65+ Years Completed 08/15/2018, 01/19/2016, 10/07/2008, Additional history exists Influenza Vaccine Completed 07/25/2023, , 07/22/2021, Additional history exists Hepatitis B Vaccine Aged Out No longe r eligible based on patient's age to complete this topic Care Teams Drying Frame Operator Relationship Specialty Start Date End Date Darwin Catalan MD [address] [facility] [address] [place] [address] PCP - General Family Medicine 11/26/23
--- OUTSIDE RECORDS SUMMARY | 2024-03-03 20:37 | XMS_ITS | Encounter Summary ---
Author Name Unknown Organization [facility] Address [address] [place] [address] Care Team Providers Care Shading Painter Name Role Phone Darwin Catalan MD Primary Care Provider Reason for Visit * Reason Comments Follow-up Encounter Details Date Type Department Care Team Description 01/01/2024 11:30 AM EST Office Visit [facility] [address] [place] [address] Darwin Becker MD [address] [place] [address] Chronic kidney disease stage 4 (HCC) (Primary Dx); Chronic diastolic congestive heart failure (HCC); Simple chronic bronchitis (HCC); Secondary hyperparathyroidism of renal origin (HCC); Chronic gout due to renal impairment, right ankle and foot, without tophus (tophi), not otherwise specified; Anemia in chronic kidney disease; 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, not otherwise specified; Type 2 diabetes mellitus with diabetic chronic kidney disease (HCC); Hypertensive chronic kidney disease, benign, with chronic kidney disease stage I through stage IV, or unspecified Social History Tobacco Use Types Packs/Day Years [...] on file Sexual Orientation Not on file documented as of this encounter Last Filed Vital Signs Vital Sign Reading Time Taken Comments Blood Pressure 116/66 01/01/2024 11:41 AM DIRECTOR OF GIFT PLANNING Pulse 72 01/01/2024 11:41 AM DIRECTOR OF GIFT PLANNING Temperature - - Respiratory Rate - - Oxygen Saturation 96% 01/01/2024 11:41 AM DIRECTOR OF GIFT PLANNING Inhaled Oxygen Concentration - - Weight 92.1 kg (203 lb) 01/01/2024 11:41 AM DIRECTOR OF GIFT PLANNING Height 172.7 cm (5' 8) 01/01/2024 11:41 AM DIRECTOR OF GIFT PLANNING Body Mass Index 30.87 01/01/2024 11:41 AM DIRECTOR OF GIFT PLANNING documented in this encounter Patient Instructions * Patient Instructions* Estefany Calderon - 01/01/2024 11:30 AM DIRECTOR OF GIFT PLANNING 1. Discontinue the calcitriol. It is no longer necessary. 2. Start allopurinol at 300 mg once daily. This medication should prevent any future bouts of gout.If you recognize or notice a rash following starting this medication, discontinue it immediately. There is also a very small risk of a gout flare being incited following this medication being started. If so, do not hesitate to contact me and we can provide another course of prednisone. We will contact you to schedule your 6 month follow up. Labs should be completed 1-[address] Becker/JUAN Allison Welcome to [facility] Although we are experts in the care of patients with chronic kidney disease, we understand that youare the expert regarding your own life. Our goal is to work with you in providing the best possiblecare and to meet your individual needs. In addition to our Nephrologists, we have a team of Advanced Practice Providers (ERIKA's) to help closely monitor our patients. Our ERIKA's have specialized training and experience in caring for renal patients. If your Manager Strategy deems it appropriate, you will be scheduled with an ERIKA to manage your care. The keys to managing our patient's care include: Blood Pressure: Our goal is to keep your blood pressure 130/80 or lower. Heart and blood vessels: We want your LDL (bad cholesterol) to be below 100. Blood and Urine testing: Provides a more in depth 'picture' into the current renal status of a patient. If you smoke, it is important to quit. We want you to maintain good nutrition to keep your body healthy, so we do have a Renal Waist Presser to help you with this. We encourage keeping a log of blood pressures for monitoring efficiency of any blood pressure medications. If you have diabetes, we want to keep your hemoglobin A1c at 7.0 or lower and your blood sugar 80 to 130. Avoid cold medications that include ephedrine, phenylpropolamine or pseudoephedrine (Sudafed, Actifed). If your doctor wants you to have a CT scan or MRI with IV contrast, be sure to let them know that you see a face burler for your kidney disease. Ask that they contact your face burler before this type of test is scheduled. When to call for your kidneys: Any new medications prescribed to you by other providers. Any new leg swelling or unexplained weight gain > 3-5 pounds. Consistently elevated Blood Pressure or dizziness (BP greater than 140/90) When to go to the Emergency Room: If you get dehydrated, or have excessive nausea, headache or vomiting, you may need to get IV fluids. If you cannot pass your urine completely (empty your bladder) as this may be a sign of an Acute Injury to your Kidney. Our Doctors, Advanced Practice Providers, nurses, and Renal Waist Presser are here to provide you with the best renal care. We want you to feel free to call us when you have questions or concerns. To call the nurse at your face burler's office, please see the address and telephone number listed on your After Visit Summary. Thank you, The Physicians and staff at [facility], [facility]. UNDERSTANDING YOUR BLOOD PRESSURE & LAB RESULTS People who develop chronic kidney disease may have some or all of the following tests. This sheet is to help you understand the results: Blood Pressure: Achieving the blood pressure goals identified by your kidney doctor is very important in slowing the progression of your kidney disease. Always take blood pressure medications as directed. Other steps to follow may include cutting down on the amount of salt in your diet, losing excess weight and following a regular exercise program. Serum Creatinine: Creatinine is a waste product in your blood that comes from muscle activity. It is normally removed from your blood by your kidneys, but when kidney function slows down, the creatinine level rises. (Lab Normal Range: Male: 0.5--1.3, Female: 0.4--1.1) BUN (Blood Urea Nitrogen): BUN is a waste product in your blood that is normally removed from your body by the kidneys. When your kidney function slows down or if you become dehydrated, the BUN levels rise. (Lab Normal Range: 7--24) Glomerular Filtration Rate (GFR): Your GFR tells how much kidney function you have. It is calculated from your blood level of creatinine. (Lab Normal Range: Equal to or greater than 60) Potassium: Potassium is a mineral in your blood that helps your heart and muscles work properly, too much or too little potassium can be harmful to your heart and other muscles in your body. Potassium levels can be controlled by careful dietary restrictions. Our dietitian can help plan your diet toget the right amount of potassium. (Lab Normal Range: 3.5--5.1) Phosphorus: Failing kidneys do not remove phosphorus efficiently. A high phosphorus level can lead to weak bones. If your level is too high, your kidney doctor may ask you to reduce your intake of foods that are high in phosphorus and take medications called phosphate binders with your meals and snacks. (Lab Normal Range: 2.5--4.9) Calcium: Calcium is a mineral that is important for strong bones. To help balance the amount of calcium in your blood, your kidney doctor may ask you to take calcium supplements and Vitamin D. Take only the supplements and medications recommended by your kidney doctor. (Lab Normal Range: 8.5--10.1) Parathyroid Hormone (PTH): This hormone is a marker for your bone health. High levels may result from a poor balance of calcium and phosphorus in your body that can cause bone disease. Your kidney doctor may order a special prescription form of Vitamin D to help lower your PTH. (Lab Normal Range: 14--72) Hemoglobin: Hemoglobin is the part of red blood cells that carries oxygen from your lungs to all parts of your body. A low hemoglobin level indicates too few red blood cells, which is called anemia. Anemia can make you feel tired or have a low energy level. If you have anemia, you may need treatment with iron supplements or a hormone called erythropoietin (EPO). You will be referred to a [facility] ([facility]) to manage your anemia. (Lab Normal Range: Males: 14-18, Females: 12-16) TSAT and Serum Ferritin: Your TSAT (% iron saturation) and serum ferritin are measures of iron in your body. Abnormal values may indicate iron deficiency. Your kidney doctor may recommend iron supplements when needed. (Lab Normal Range: TSAT: 15--50; Serum Ferritin: 8--388) Cholesterol tests: Patients with kidney disease have an increased risk for cardiovascular disease (heart disease), therefore it is important that your cholesterol is well controlled. Dietary changes,exercise, and cholesterol lowering medication can lower cholesterol levels and decrease cardiovascular risk. Total Cholesterol: Cholesterol is a fat-like substance found in your blood. A high cholesterol level may increase your chance of having heart and circulation problems. For many patients, the target level is less than 200. HDL Cholesterol: HDL is a type of 'good' cholesterol that protects your heart. For many patients, the target level for HDL is above 40. LDL Cholesterol: LDL is a type of 'bad' cholesterol. A high LDL level may increase your chance of having heart and circulation problems. For many patients, a good level for LDL cholesterol is below 100, but some patients may have an even lower goal. Triglyceride: Triglyceride is a type of fat found in your body. A high triglyceride level along with high levels of total and LDL cholesterol may increase your chance of heart and circulation problems. For many patients, the target level is less than 150. HgbA1c: The HgbA1c is a marker of diabetes control for the past two to three months. Adequate diabetes control has been proven to slow the progression of kidney failure. (Lab Normal Range: Less than or equal to 5.6 if average glucose is less than or equal to 114.) Avoiding Non-Steroidal Anti-Inflammatory Drugs (NSAIDs) Taking medications called NSAIDS (list of names below) can damage your kidneys and we recommend youdo not take them. Because many patients do not recognize NSAIDs by their brand or generic names, there may be overlap in prescription and Over the Counter (OTC) use. NSAIDs are sold under many different brand names, so ask your pharmacist or health care provider if the medicines you take are safe to use. Below is a list of common NSAIDs: ibuprofen (Advil, Motrin, Midol, Wal-Profin) naproxen (Aleve, Naprosyn, Midol Extended Relief, Anaprox) meloxicam (Mobic), oxaprozin (Daypro), piroxicam (Feldene) celecoxib (Celebrex) indomethacin (Indocin) If you take OTC or prescription medicines for headaches, pain, fever, or colds, you may be taking NSAIDs. If you are unsure if a product contains an NSAID, ask your pharmacist or your health care provider. You can also look for product contents on the Drug Facts labels. documented in this encounter Progress Notes * Darwin Becker MD - 01/01/2024 11:30 AM CST Images from the original note were not included. Patient: Lenny Abel Date of : 1940 Chart: [id number] PCP: Darwin Catalan MD Date of Service: 01/01/2024 Chief Complaint: Lenny Abel returns in follow-up for CKD stage IV Subjective: Patient returns in follow-up of the above. He was seen last by me in April 2023. He was continuing to deal with his chronically ill spouse with greatly advanced dementia. He was grieving as a result of a son dying unexpectedly around that time. He underwent coronary angiography for NSTEMI in October 2023 with angioplasty stenting of the proximal LAD with an advance guidewire across OM1 due to total chronic occlusion. Decision was made to continue on with medical therapy thereafter. Of course he was sent home on DAPT. I note that he also presented to the emergency department on 12/26/2023 complaining of right lateralfoot pain similar to previous prior to gout episodes. Laboratory work showed stability in CKD, normal C-reactive protein. He had an elevated uric acid 9.2 and he was prescribed prednisone at 20 mg daily for 5 days. Reports feeling well overall. Is still able to successfully care for his with the help of their 2 daughters. Tolerating his current medications nicely. On the other hand, continues to have dyspnea on exertion that has not improved following coronary stenting as well as several sessions of cardiac rehab. He will be seen by cards soon. Finally his gouty flare has resolved and he inquires aboutpreventative therapy. 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 But I would refrain at this point due to his compromised GFR less than 30 mL/min. Otherwise defer further to PCP. Anemia in chronic kidney disease (Chronic) Overview Overall unremarkable colonoscopy March 2019 (follow-up colonoscopy not recommended due to patient's advanced age). Normal upper endoscopy June 2021. Current Assessment & Plan Overall downtrend of hemoglobin in the past [...] such as melena, epistaxis, hematemesis, coffee-ground emesis, orbright red blood per rectum by history. He is on dual antiplatelet therapy increasing risk for bleeding course but also on chronically administered PPI. If patient is not offered any further recommendations by cardiology I would consider the following: - Based on the very low ferritin from January 2022, consider repeating the ferritin level and if lessthan 200, consider a trial of outpatient administered [...] and the globin descends below 9 g/dL. Secondary hyperparathyroidism of renal origin (HCC) (Chronic) Current Assessment & Plan Thrice weekly administered calcitriol. Calcium levels appear appropriate. Calcitriol will be discontinued moving forward no further recommendations for this medication currently unless he progresses to ESRD. Phosphorus level at the next visit. 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 Current Assessment & Plan Still experiencing dyspnea on exertion. Unclear if [...] few weeks. Chronic kidney disease stage 4 (HCC) - Primary Overview Baseline creatinine in the high ones-2 range most likely related to small vessel disease, hypertensive nephrosclerosis, diabetic glomerulosclerosis, and a contribution from cardiorenal physiology. Current Assessment & Plan GFR remains stable overall. No electrolyte issues. Potassium is in fine condition as is his acid-base status. Therefore result to continue spironolactone as ordered at this time. If there is evidenceof consistent hyperkalemia and/or deterioration of GFR, would keep a very low threshold to discontinue spironolactone on a permanent basis. We will follow-up with Lenny in 6 months. Relevant Medications allopurinol (ZYLOPRIM) 300 MG tablet Other Relevant Orders Renal function panel Hemoglobin Hypertensive chronic kidney disease, benign, with chronic kidney disease stage I through stage IV, or unspecified Current Assessment & Plan Excellent control on current medication regimen. Continue. Chronic gout due to renal impairment without tophus Current Assessment & Plan Uric acid level elevated at 9.2. This was ordered by another provider. The flare has ceased following a course of prednisone. Discussion today regarding the fact that he does fit criteria to considerpreventative therapy with the uricosuric. Most recent flare was his third flare which was rather severe. I discussed the complications of allopurinol therapy including the possibility for life-threate rudy allergic reaction, rash, and the possibility of inciting a gouty flare. He agreed to take on these risks and based on his GFR, incredibly reasonable to start him at 300 mg a day. Relevant Medications allopurinol (ZYLOPRIM) 300 MG tablet Chronic diastolic congestive heart failure (HCC) Overview Echocardiogram from February 2002 with EF of 55-60%. Current Assessment & Plan Continues to appear to tolerate chronically administered mineralocorticoid receptor antagonist. Well compensated on examination. See comments in the diabetes section regarding SGL 2 inhibitor class of medications. Additional RAAS inhibitors not recommended in view of compromised GFR and already high end of normal potassium values. Simple chronic bronchitis (HCC) Current Assessment & Plan Severe and longstanding. Not yet on home O2. Relevant Medications benzonatate (TESSALON) 200 MG capsule Return in about 6 months (around 07/01/2024) for Recheck. Darwin Becker MD [facility] The following portions of the patient's chart were reviewed in this encounter and updated as appropriate: Tobacco Allergies Meds Problems Med Hx Surg Hx Fam Hx Review of Systems Cardiovascular: Negative for chest pain. Shortness of breath with exertion primarily. Not improved following coronary angiogram as noted in the narrative above. All other systems reviewed and are negative. 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 History of Present Illness Past Medical History: Diagnosis Date Atrial fibrillation (HCC) Diabetes mellitus without mention of complication, type II or unspecified type, not stated as uncontrolled (HCC) End stage renal disease (HCC) H/O: cardiovascular disease Sleep apnea Past Surgical History: Procedure Laterality Date CORONARY ANGIOPLASTY 10/11/2023 [facility] STENT ANGIO, PLAD stent Family History Problem Relation Age of Onset Heart disease Mother atherosclerotic Cardiovascular disease Cancer Mother colon Cancer Brother colon Cancer Mother's Sister colon Cancer Mother's Brother lung Social History Tobacco Use Smoking status: Former Packs/day: 2.00 Years: 24.00 Additional pack years: 0.00 Total pack years: 48.00 Types: Cigarettes Start date: 02/04/1956 Quit date: 11/11/1979 Years since quittin.1 Smokeless tobacco: Never Vaping Use Vaping Use: Never used Substance Use Topics Alcohol use: Never Drug use: Never Taking? Provider LT acetaminophen (TYLENOL) 325 MG tablet Kenroy Wolf MD Take 325 mg by mouth every 6 (six) hours if needed acetaminophen (TYLENOL) 500 MG tablet Kenroy Wolf MD Take 1 Tablet (500 mg) by mouth every 6 hours if needed for Pain. Max acetaminophen dose: 4000mg in24 hrs. albuterol HFA (PROVENTIL HFA;VENTOLIN HFA) 108 (90 Base) MCG/ACT inhaler Kenroy Wolf MD Inhale 2 puffs allopurinol (ZYLOPRIM) 300 MG tablet Darwin Becker MD Take 1 tablet (300 mg total) by mouth 1 (one) time each day For gout prevention atorvastatin (LIPITOR) 40 MG tablet Kenroy Wolf MD Take 40 mg by mouth in the morning. benzonatate (TESSALON) 200 MG capsule Kenroy Wolf MD TAKE ONE CAPSULE BY MOUTH THREE TIMES A DAY NEEDED FOR COUGH clobetasol (TEMOVATE) 0.05 % cream Kenroy Wolf MD APPLY TO AFFECTED AREA ON BODY TWICE A DAY FOR 2 WEEKS , TAKE 2 WEEK BREAK THEN REPEAT NEEDED FOR FLARES clopidogrel (PLAVIX) 75 MG tablet Kenroy Wolf MD Take 75 mg by mouth in the morning. famotidine (PEPCID) 40 MG tablet Kenroy Wolf MD Take 40 mg by mouth in the morning. glipiZIDE (GLUCOTROL) 5 MG tablet Kenroy Wolf MD Take 5 mg by mouth in the morning. ipratropium-albuterol (DUO-NEB) 0.5-2.5 mg/3 mL nebulizer solution Kenroy Wolf MD Inhale metoprolol tartrate (LOPRESSOR) 50 MG tablet Kenroy Wolf MD Take 50 mg by mouth in the morning and 50 mg in the evening. nitroglycerin (NITROSTAT) 0.4 MG SL tablet Kenroy Wolf MD Place 0.4 mg under the tongue every 5 (five) minutes if needed for chest pain omeprazole OTC (PriLOSEC OTC) 20 MG EC tablet Kenroy Wolf MD Take 20 mg by mouth 1 (one) time each day predniSONE (DELTASONE) 20 MG tablet Kenroy Wolf MD Take 40 mg by mouth in the morning. spironolactone (ALDACTONE) 50 MG tablet Kenroy Wolf MD Take 25 mg by mouth in the morning. Tiotropium Casa-Olodaterol 2.5-2.5 MCG/ACT aerosol solution Kenroy Wolf MD Inhale 2 puffs in the morning. torsemide (DEMADEX) 10 MG tablet Kenroy Wolf MD Take 10 mg by mouth in the morning. Allergies Allergen Reactions Fluorescein-Benoxinate Other (see comments) Pt reports that is unaware of this allergy Fluorometholone Other (see comments) and Swelling Lisinopril Other (see comments) Proparacaine Other (see comments) Pt reports that is unaware of this allergy Physical Exam BP 116/66 (BP Location: Right upper arm, Patient Position: Sitting, BP Cuff Size: Adult) Pulse 72 Ht 5' 8 (1.727 m) Wt 203 lb (92.1 kg) SpO2 96% BMI 30.87 kg/m?? Vitals reviewed. Constitutional: He is oriented to person, place, and time. Cardiovascular: Normal rate and regular rhythm. He exhibits no edema. Pulmonary/Chest: Effort normal and breath sounds normal. Abdominal: Soft. Bowel sounds are normal. Musculoskeletal: Normal range of motion. Neurological: He is alert and oriented to person, place, and time. Skin: Skin is warm and dry. Psychiatric: He has a normal mood and affect. His behavior is normal. Judgment normal. Chemistry and Bone Mineral Lab Units 11/15/23 0000 SODIUM mEq/L 141 POTASSIUM mEq/L 4.9 CHLORIDE 104 CO2 mmol/L 26 CALCIUM mg/dL 8.8 GLUCOSE mg/dL 180* BUN mg/dL 57* CREATININE mg/dL 2.29* EGFR 28* No lab exists for component: GLUCOSEUR, BILIRUBINUR, SPECGRAV, RBCUR, LEUKOCYTESUR, NITRITE I have performed a complete review of pertinent lab results. 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 Unclear if this may be his known COPD or if coronary ischemia may still be in the differential. Also no improvement following 17 sessions of cardiac rehab. He appears to be incredibly well compensated on exam today with no evidence of decompensated heart failure. Will be visiting with cardiology in the next few weeks. * Assessment & Plan Note - Darwin Becker MD - 01/01/2024 12:11 PM CSTAssociated Problem(s): Hypertensive chronic kidney disease, benign, with chronic kidney disease stage I through stage IV, or unspecified Excellent control on current medication regimen. Continue. * Assessment & Plan Note - Darwin Becker MD - 01/01/2024 12:10 PM CSTAssociated Problem(s): Type 2 diabetes mellitus with diabetic chronic kidney disease (HCC) He is certainly a patient to consider SGL 2 inhibitor class of medications being started. But I would refrain at this point due to his compromised GFR less than 30 mL/min. Otherwise defer further to PCP. * Assessment & Plan Note - Darwin Becker MD - 12/30/2023 10:36 AM CSTAssociated Problem(s): Chronic kidney disease stage 4 (HCC) GFR remains stable overall. No electrolyte issues. Potassium is in fine condition as is his acid-base status. Therefore result to continue spironolactone as ordered at this time. If there is evidenceof consistent hyperkalemia and/or deterioration of GFR, would keep a very low threshold to discontinue spironolactone on a permanent basis. We will follow-up with Lenny in 6 months. * Assessment & Plan Note - Darwin Becker MD - 12/30/2023 10:31 AM CSTAssociated Problem(s): Anemia in chronic kidney disease Overall downtrend of hemoglobin in the past [...] such as melena, epistaxis, hematemesis, coffee-ground emesis, orbright red blood per rectum by history. He is on dual antiplatelet therapy increasing risk for bleeding course but also on chronically administered PPI. If patient is not offered any further recommendations by cardiology I would consider the following: - Based on the very low ferritin from January 2022, consider repeating the ferritin level and if lessthan 200, consider a trial of outpatient administered [...] and the globin descends below 9 g/dL. * Assessment & Plan Note - Darwin Becker MD - 12/30/2023 10:29 AM CSTAssociated Problem(s): Chronic gout due to renal impairment without tophus Uric acid level elevated at 9.2. This was ordered by another provider. The flare has ceased following a course of prednisone. Discussion today regarding the fact that he does fit criteria to considerpreventative therapy with the uricosuric. Most recent flare was his third flare which was rather severe. I discussed the complications of allopurinol therapy including the possibility for life-threate rudy allergic reaction, rash, and the possibility of inciting a gouty flare. He agreed to take on these risks and based on his GFR, incredibly reasonable to start him at 300 mg a day. * Assessment & Plan Note - Darwin Becker MD - 12/30/2023 10:26 AM CSTAssociated Problem(s): Secondary hyperparathyroidism of renal origin (HCC) Thrice weekly administered calcitriol. Calcium levels appear appropriate. Calcitriol will be discontinued moving forward no further recommendations for this medication currently unless he progresses to ESRD. Phosphorus level at the next visit. * Assessment & Plan Note - Darwin Becker MD - 12/30/2023 10:25 AM CSTAssociated Problem(s): Simple chronic bronchitis (HCC) Severe and longstanding. Not yet on home O2. * Assessment & Plan Note - Darwin Becker MD - 12/30/2023 10:24 AM CSTAssociated Problem(s): Chronic diastolic congestive heart failure (HCC) Continues to appear to tolerate chronically administered mineralocorticoid receptor antagonist. Well compensated on examination. See comments in the diabetes section regarding SGL 2 inhibitor class of medications. Additional RAAS inhibitors not recommended in view of compromised GFR and already high end of normal potassium values. documented in this encounter Plan of Treatment Scheduled Orders Name Type Priority Associated Diagnoses Orde r Schedule Renal function panel Lab Routine Chronic kidney disease stage 4 (HCC) Expected: 07/01/2024 (Approximate), Expires: 01/29/2025 Hemoglobin Lab Routine Chronic kidney disease stage 4 (HCC) Expected: 07/01/2024 (Approximate), Expires: 01/29/2025 documented as of this encounter Visit Diagnoses Diagnosis Chronic kidney disease stage 4 (HCC)- Primary Chronic diastolic congestive heart failure (HCC) Simple chronic bronchitis (HCC) Simple chronic bronchitis Secondary hyperparathyroidism of renal origin (HCC) Secondary hyperparathyroidism of renal origin Chronic gout due to renal impairment, right ankle and foot, without tophus (tophi), not otherwise specified 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
--- OUTSIDE RECORDS SUMMARY | 2024-03-03 20:37 | XMS_ITS | Encounter Summary ---
Author Name Unknown Organization [facility] [place] Address [address] [place] [address] Care Team Providers Care Precipitator Operator Name Role Phone Darwin Catalan MD Primary Care Provider [phone] Encounter Details Date Type Department Care Team Description 11/30/2023 Documentation Only [facility] [address] [place] [address] Estefany Calderon [address] [place] [address] Social History Tobacco Use Types Packs/Day Years Used Date Smoking Tobacco: Former Cigarettes 2 24 0 [birth year]/04/1956 - 11/11/1979 Smokeless Tobacco: Never Alcohol Use Standard Drinks/Week Comments Never 0 (1 standard drink = 0.6 oz pur e alcohol) Sex and Gender Information Value Date Recorded Sex Assigned at Not on file Gender Identity Not on file Sexual Orientation Not on file documented as of this encounter Plan of Treatment Not on file documented as of this encounter Procedures Procedure Name Priority Date/Time Associated Diagnosis Comments BASIC METABOLIC PANEL (BMP) (EXTERNAL LAB ENTRY) Routine 11/15/2023 documented in this encounter Results * (ABNORMAL) Basic Metabolic Panel (BMP) (11/15/2023) Sodium 141 mEq/L [facility] Potassium 4.9 mEq/L [facility] Chloride 104 [facility] Carbon Dioxide 26 mmol/L [facility] Calcium 8.8 mg/dL [facility] BUN 57(H) mg/dL [facility] Creatinine 2.29(H) mg/dL [facility] Glucose 180(H) mg/dL [facility] eGFR 28(L) [facility] Anion Gap 11 [facility] 11/15/2023 Historical Provider LAB BLOOD ORDERAB LES [facility] documented in this encounter Visit Diagnoses Not on filedocumented in this encounter Care Teams Precipitator Operator Relationship Specialty Start Date End Date Darwin Catalan MD [address] [place] [id number] PCP - General Family Medicine 11/26/23 documented as of this encounter
--- OUTSIDE RECORDS SUMMARY | 2024-03-03 20:37 | XMS_ITS | Encounter Summary ---
Author Name Unknown Organization [facility] Address [address] [place] [address] Care Team Providers Care Undercover Agent Name Role Phone Darwin Catalan MD Primary Care Provider [phone] Encounter Details Date Type Department Care Team Description 12/25/2023 Office Communication [facility] [address] [place] [address] Darwin Becker MD [address] [place] [address] Social History Tobacco Use Types Packs/Day Years [...] on file documented as of this encounter Miscellaneous Notes * Telephone Encounter - Leandra Alvarez - 12/25/2023 1:16 PM CST LVM with patient regarding that he doesn't need to have labs drawn for his upcoming follow up appt. * Telephone Encounter - Estefany Calderon - 12/25/2023 11:17 AM CST No labs needed. [facility] de-embedded pt. Will database most recent set of labs. * Telephone Encounter - Joey Garsia - 12/25/2023 11:13 AM CST here * Telephone Encounter - Leandra Alvarez - 12/25/2023 10:09 AM CST Please fax lab orders to [facility]. Patient called to make a lab appt but orders were not there yet. documented in this encounter Plan of Treatment Not on file documented as of this encounter Visit Diagnoses Not on filedocumented in this encounter Care Teams Undercover Agent Relationship Specialty Start Date End Date Darwin Catalan MD [address] [place] [address] [place] [id number] PCP - General Family Medicine 11/26/23 documented as of this encounter
--- OUTSIDE RECORDS SUMMARY | 2024-03-03 20:37 | XMS_ITS | Encounter Summary ---
Author Name [facility] Address [address] [place] [address] Support Name Relationship Address Phone KERRI MARTIN Next of Kin [address] [place] [address] KERRI MARTIN Emergency Contact [address] [place] [address] Insurance Providers: All historical and current Section Date Range: From patient's date of to the date document was created. This section includes the names of all active insurance providers for the patient. Insurance Provider Type of Coverage Plan Name Start of Policy Coverage End of Policy Coverage Group Number Member ID Insurance Provider's Telephone Number Policy Jerez's Name Patient's Relationship to Policy Jerez [facility] (WNR) MEDICARE ADVANTAGE [facility] (WNR) Nov 05, 2019 [id number] VERONICAJAGRUTI MCQUEEN PATIENT [facility] [facility] [place] [facility] (WNR) MEDICARE ADVANTAGE [facility] (WNR) Jul 06, 2009 [id number] [phone] JAGRUTI MARTIN PATIENT Selected Encounter This section includes the information on record at [place] for the Encounter. Date/Time Encounter Type Encounter Description Reason Pro vider Source Jun 28, 2023 03:02 PM Outpatient Encounter COMMUNITY CARE CONSULT I[facility] Encounter Template Text not used by [place] Plan of Treatment: Future Appointments (+ 6 months) and Future Tests (+/- 45 days) The Plan of Treatment section includes future care activities for the patient from all [facility]. This section includes future appointments and future orders which are active, pending or scheduled. Future Appointments This section includes appointments that were scheduled to occur 6 months from the date of the Encounter, up to a maximum of 20 appointments. The data comes from all [place] treatment facilities. Appointment Date/Time Appointment Type Appointme nt Facility Name Dec 10, 2023 05:20 PM AMBULATORY - REHAB MEDICIN E [facility] Dec 27, 2023 09:00 AM AMBULATORY - MEDICINE [facility] Dec 27, 2023 10:20 AM AMBULATORY - MEDICINE [facility] Social History: Smoking Status (Most current) and Tobacco Use (All prior to encounter date) This section includes the most current, and the historical, smoking and tobacco- related health factors from the [place] facility where the Encounter took place. Current Smoking Status This section includes the most current smoking, or tobacco-related health factor, from the [place] facility where the Encounter took place. Date/Time Current Smoking Status Comment Facil ity Oct 06, 2019 10:08 AM [place]-TOBACCO QUIT 15 YRS OR MORE [facility] Tobacco Use History This section includes a history of the smoking, or tobacco-related health factors, that were collected on or before the date of the Encounter. The data comes from the [place] facility where the Encounter took place. Date/Time Smoking Status/Tobacco Use Comment F acility Oct 06, 2019 10:08 AM [place]-TOBACCO QUIT 15 YRS OR MORE [facility] Sep 05, 2018 10:24 AM [place]-TOBACCO FORMER USER [facility] Sep 05, 2018 10:24 AM [place]-TOBACCO QUIT 15 YRS OR MORE [facility] Sep 20, 2017 01:16 PM FORMER TOBACCO USER 7Y OR GREATE R [facility] Apr 07, 2016 11:13 AM FORMER TOBACCO USER 7Y OR GREATE R [facility] March 05, 2015 01:06 PM FORMER TOBACCO USER 7Y OR GREATE R [facility] March 06, 2014 01:32 PM LIFETIME NON-TOBACCO USER [facility] Oct 22, 2007 11:55 AM FORMER TOBACCO USER 7Y OR GREATE R [facility] Advance Directives: All historical and current Section Date Range: From patient's date of to the date document was created. This section includes ALL of a patient's completed or amended [place] Advance and Rescinded Directives. The entries below indicate that a directive exists for the patient, but an actual copy is not included with this document. The data comes from all [facility]. Date Advance Directives Provider Source Oct 22, 2007 ADVANCE DIRECTIVE DIALLO RINCON [facility] Encounter Notes: All associated encounter notes This section contains the clinical notes associated to the Encounter. Date/Time Encounter Note(s) Provider Source Jun 28, 2023 03:02 PM PHARMACY NOTE: LOCAL TITLE: PHARMACY NON [facility] CARE MEDICATIONS STANDARD TITLE: PHARMACY NOTE DATE OF NOTE: JUN 28, 2023@15:02 ENTRY DATE: JUN 28, 2023@15:02:41 AUTHOR: KAT MEDINA EXP COSIGNER: URGENCY: STATUS: COMPLETED Type in the Template Boilerplate (white space) the following: [facility] RECEIVED electronic prescription(s) (eRX(s)) from NON-VA Provider: MIKE MAHARAJ Date eRX received: Jun Outside (NON-VA) provider not authorized to write for prescription(s) through [place] pharmacy. Prescription request REDIRECTED via FAX to one of the following for review: [X][facility] (Dual) Care [ ]Other: eRx Prescription Information: eRx Reference #: [id number] eRx Drug: calcitrioL 0.25 mcg capsule (ROCALTROL) eRx Qty: 36 eRx Refills: 4 eRx Days Supply: eRx Written Date: JUN 28, 2023 eRx Issue Date: Prohibit Renewals: No eRx Sig: Take one capsule (0.25 mg) three times a week (on Mondays, Wednesdays, and Fridays). /suleman/ KAT MEDINA RPH PHARMACIST Signed: 06/28/2023 15:03 KAT MEDINA [facility]
--- OUTSIDE RECORDS SUMMARY | 2024-03-03 20:37 | XMS_ITS | Encounter Summary ---
Author Name Department of Vetera Affairs Organization [facility] Address [address] [place] [id number] Support Name Relationship Address Phone KERRI MARTIN Next of Kin [address] [place] [phone] KERRI MARTIN Emergency Contact [address] [place] [phone] Insurance Providers: All historical and current Section [...] Patient's Relationship to Policy Jerez [facility] (WNR) MEDICARE ADVANTAGE MCR ([facility]) Nov 05, 2019 [id number] [phone] JAGRUTI MARTIN PATIENT [facility] (WNR) MEDICARE [facility] (R) Jul 06, 2009 [id number] JAGRUTI MARTIN PATIENT Selected Encounter This section includes the information on record at [place] for the Encounter. Date/Time Encounter Type Encounter Description Reason Provider Source Dec 27, 2023 09:00 AM Outpatient Encounter PRIMARY CARE/MEDICINE ICD-10-CM I48.91 Unspecified atrial fibrillation HERMELINDO TSE Encounter Template Text not used by VA Assessments - Encounter Diagnoses This section includes the primary and secondary diagnoses documented for the Encounter. Date/Time Primary/Secondary Diagnosis Diagnosis Name Provider Source Jan 03, 2024 07:26 PM PRIMARY Unspecified atrial fibrillation ERIN TSE [facility] Jan 03, 2024 07:26 PM SECONDARY [facility] heart disease [facility] [place] [place] coronary artery w/o ang pctrs ERIN TSE JD C NEIL [facility] Jan 03, 2024 07:26 PM SECONDARY Chronic obstructive pulmonary disease, unspecified ERIN TSE [facility] Jan 03, 2024 07:26 PM SECONDARY Essential (primary) hypertension ERIN TSE JD C [facility] Jan 03, 2024 07:26 PM SECONDARY Type 2 diabetes mellitus without complications ERIN TSE JD TREJO CB Plan of Treatment: Future Appointments (+ 6 months) and Future Tests (+/- 45 days) The Plan of Treatment section includes future care activities for the patient from [facility] [place] [facility]. This section includes future appointments and future orders which are active, pending or scheduled. Active, Pending, and Scheduled Orders This section includes a listing of several types of active, pending, and scheduled orders, including clinic medications orders, diagnostic test orders, procedure orders and consult orders; where the start date of the order is 45 days before the date of the Encounter or 45 days after the date of theEncounter. The data comes from all [facility]. Test Date/Time Test Type Test Details Facility Name Dec 27, 2023 10:00 AM Laboratory - Chemi stry Order CBC BLOOD [facility] Dec 27, 2023 10:00 AM Laboratory - Chemi stry Order CREATININE(INCLUDES EGFR) [facility] Dec 27, 2023 10:00 AM Laboratory - Chemi stry Order AST/SGOT PLAS[facility] Dec 27, 2023 10:00 AM Laboratory - Chemi stry Order ALT/SGPT PLAS[facility] Vital Signs: All taken on the encounter date This section contains inpatient and outpatient Vital Signs collected on the date of the Encounter. Date/Time Temperature Pulse Blood Pressure Respiratory Rate SP02 Pain Height Weight Body Mass Index Source Dec 27, 2023 08:55 AM 97.1 75 102/58 20 95 0 68 200.5 31 JD SANTORO Social History: Smoking Status (Most current) and Tobacco Use (All prior to encounter date) This section includes the most current, and the historical, smoking and tobacco- related health factors from the [place] facility where the Encounter took place. Current Smoking Status This section includes the most current smoking, or tobacco-related health factor, from the [place] facility where the Encounter took place. Date/Time Current Smoking Status Comment Facil ity Dec 27, 2023 09:00 AM VA-TOBACCO FORMER USER JD TREJO [facility] Tobacco Use History This section includes a history of the smoking, or tobacco-related health factors, that were collected on or before the date of the Encounter. The data comes from the [place] facility where the Encounter took place. Date/Time Smoking Status/Tobacco Use Comment F acility Dec 27, 2023 09:00 AM VA-TOBACCO QUIT 15 YRS OR MORE JD TREJO [facility] Advance Directives: All historical and current Section Date Range: From patient's date of to the date document was created. This section includes ALL of a patient's completed or amended [place] Advance and Rescinded Directives. The entries below indicate that a directive exists for the patient, but an actual copy is not included with this document. The data comes from all [place] facilities. Date Advance Directives Provider Source Oct 22, 2007 ADVANCE DIRECTIVE DIALLO RINCON [facility] Encounter Notes: All associated encounter notes This section contains the clinical notes associated to the Encounter. Date/Time Encounter Note(s) Provider Source Dec 27, 2023 09:28 AM PRIMARY CARE NOTE: LOCAL TITLE: [facility] PROGRESS NOTE-[facility] TITLE: PRIMARY CARE NOTE DATE OF NOTE: DEC 27, 2023@09:28 ENTRY DATE: DEC 27, 2023@09:28:55 AUTHOR: YVES TSE COSIGNER: URGENCY: STATUS: COMPLETED Today's Nurse check-in note reviewed. Chief complaint: Transfer care Co- managed by: Sol History of Present Illness: The patient is a 83 year old MALE with COPD, CAD, CKD, DM, gout here to transfer care. Vet lives with his who has dementia Recent gout flare ; uric acid was 9.2 on prednisone (non VA) ROS is negative, pertinent positive are listed above in HPI. Past Medical History: Active problems - Computerized Problem List is the source for the following: 1. Hypertension (SNOMED CT 73724806) 2. Coronary artery disease (SNOMED CT 52003468) - PCI with stent placement remotely. 3. Hypercholesterolemia * 4. Personal History of Colonic Polyps 5. Tinnitus * 6. Sensorineural Hearing Loss * 7. Type 2 diabetes mellitus without complication (SNOMED CT 528821831) 8. Chronic obstructive lung disease - 08/22/2018: FEV1 1.47 L (64%) FVC 2.27 L (59%) 9. 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 10. Atrial fibrillation 11. Chronic kidney disease stage 4 Allergies: LISINOPRIL (Oct 18, 2018) PROPARACAINE (Nov 15, 2018) FLURESS (Nov 15, 2018) FML FORTE (FLUOROMETHOLONE 0.25%) (Jul 18, 2019) Medication Reconciliation: Education Evaluations *Was medication education provided for NEW medications or CHANGES to medications? (including medication name, dose, route, reason for use, and potential side effects). No new medications or medication changes during this encounter. MEDICATION RECONCILIATION Review Done: The medication list shown below was verified for accuracy and it includes all pending medications/active medications/all medications or discontinued within the last 90 days/all remote medications and non-VA medications. If a given category (i.e. remote meds) is not shown, that means that a patient doesn't have a medication(s) in that category. Allergies listed below were also reviewed/updated for accuracy. Allergies/ADR from [facility]D may not display in CPRS. Use JLV MRT5 - Allergies/ADRs FACILITY ALLERGY/ADR -------- No Remote Allergy/ADR Data available for this patient [facility] FLURESS [facility] FML FORTE (FLUOROMETHOLONE 0.25%) [facility] LISINOPRIL [facility] PROPARACAINE Active and Recently Outpatient Medications (including Supplies): Issue Date Status Last Fill Active Outpatient Medications Refills Expiration 1) ATORVASTATIN CALCIUM 40MG TAB Qty: 90 ACTIVE Issu:12-27-23 for 90 days Sig: TAKE ONE TABLET BY Refills: 3 Last:12-28-23 MOUTH AT BEDTIME FOR CHOLESTEROL Expr:12-27-24 2) CALCITRIOL 0.25MCG CAP Qty: 39 for 90 ACTIVE Issu:07-20-23 days Sig: TAKE ONE CAPSULE BY MOUTH Refills: 3 Last:07-24-23Sunday, SUNDAY AND SUNDAY FOR Expr:07-20-24 SECONDARY HYPERPARATHYROIDISM 3) GLIPIZIDE 5MG TAB Qty: 90 for 90 days ACTIVE Issu:11-02-23 Sig: TAKE ONE TABLET BY MOUTH EVERY Refills: 3 Last:11-29-23 DAY 30 MINUTES BEFORE MEAL FOR Expr:11-02-24 DIABETES 4) GUAIFENESIN 600MG SA TAB Qty: 200 for ACTIVE Issu:07-01-23 90 days Sig: TAKE ONE TABLET BY MOUTH Refills: 2 Last:09-20-23 TWICE A DAY Expr:07-01-24 5) METOPROLOL TARTRATE 50MG TAB Qty: 180 ACTIVE Issu:11-02-23 for 90 days Sig: TAKE ONE TABLET BY Refills: 3 Last:01-14-24 MOUTH TWICE A DAY FOR BLOOD PRESSURE Expr:11-02-24 6) OLODATEROL/TIOTROP 2.5MCG/ACTUAT 60D INH ACTIVE Issu:05-25-23 Qty: 3 for 90 days Sig: INHALE 2 Refills: 1 Last:12-26-23 PUFFS BY INHALATION EVERY DAY TO Expr:05-25-24 PREVENT TROUBLE BREATHING 7) OMEPRAZOLE 20MG EC CAP Qty: 90 for 90 ACTIVE Issu:12-24-23 days Sig: TAKE ONE CAPSULE BY MOUTH Refills: 3 Last:12-26-23 EVERY DAY -TAKE ON AN EMPTY STOMACH, Expr:12-24-24 AT LEAST 30 MINUTES PRIOR TO A MEAL FOR STOMACH ACID 8) RIVAROXABAN 15MG TAB Qty: 90 for 90 ACTIVE Issu:08-14-23 days Sig: TAKE ONE TABLET BY MOUTH Refills: 2 Last:11-04-23 EVERY DAY WITH A MEAL TO PREVENT Expr:08-14-24 AND/OR TREAT BLOOD CLOTS/STROKE Issue Date Status Last Fill Inactive Outpatient Medications Refills Expiration 1) ATORVASTATIN CALCIUM 40MG TAB Qty: 90 DISCONTINUED Issu:12-18-22 for 90 days Sig: TAKE ONE TABLET BY Refills: 0 Last:09-28-23 MOUTH AT BEDTIME FOR CHOLESTEROL Expr:12-19-23 2) GLIPIZIDE 5MG TAB Qty: 90 for 90 days DISCONTINUED Issu:12-13-22 Sig: TAKE ONE TABLET BY MOUTH EVERY Refills: 0 Last:08-31-23 DAY 30 MINUTES BEFORE MEAL FOR Expr:12-14-23 DIABETES 3) METOPROLOL TARTRATE 50MG TAB Qty: 180 DISCONTINUED Issu:11-03-22 for 90 days Sig: TAKE ONE TABLET BY Refills: 0 Last:10-26-23 MOUTH TWICE A DAY FOR BLOOD PRESSURE Expr:11-04-23 4) OMEPRAZOLE 20MG EC CAP Qty: 90 for 90 DISCONTINUED Issu:12-18-22 days Sig: TAKE ONE CAPSULE BY MOUTH Refills: 0 Last:09-05-23 EVERY DAY -TAKE ON AN EMPTY STOMACH, Expr:12-19-23 AT LEAST 30 MINUTES PRIOR TO A MEAL FOR STOMACH ACID Start Date Active Non-VA Medications Refills Expiration 1) Non-VA ACETAMINOPHEN 325MG TAB Si ACTIVE MG MOUTH EVERY SIX HOURS NEEDED 13 Total Medications Physical Exam: Vitals: BP: 102/58 (12/27/2023 08:55) P: 75 (12/27/2023 08:55) R: 20 (12/27/2023 08:55) T: 97.1 F [36.2 C] (12/27/2023 08:55) WT: 200.5 lb [90.95 kg] (12/27/2023 08:55) BMI: 30.5 Pain: 0 (12/27/2023 08:55) O2 Sat: 95% (12/27/2023 08:55) Constitutional: Alert, in no distress & healthy appearing Eyes: The sclera & conjuctiva were normal, pupils normal in size,round and reactive to light Ears: Tympanic membranes normal bilaterally Neck/Thyroid: Thyroid not enlarged Heart: Heart rate & rhythm normal, no murmur Pulmonary: No respiratory distress, clear bilateral breath sounds Abdominal: Normal bowel sounds Musculoskeletal: Gait and station normal Neurological: Alert and oriented x3 Labs reviewed ( [facility] ): 12/26/2023 BUN 31 (H) 8 - 23 mg/dL CREATININE 2.31 (H) 0.70 - 1.20 mg/dL BUN/CREAT RATIO 13 10 - 20 eGFR 27 (L) >90 mL/min/1.73m2 12/26/23: RED BLOOD COUNT 3.44 (L) 4.30 - 5.90 mil/cu mm HEMOGLOBIN 9.1 (L) 13.5 - 17.5 g/dL HEMATOCRIT 31.8 (L) 37.0 - 53.0 % 12/10/2023: TRIGLYCERIDES 139 <150 mg/dL HDL CHOLESTEROL 29 (L) >40 mg/dL NON-HDL CHOLESTEROL 89 <145 mg/dl CHOL/HDL RATIO 4.07 <4.50 LDL CHOLESTEROL 61 <=130 mg/dL VLDL CHOLESTEROL 28 <=30 mg/dL TSH 5.18 (12/10/2023) Hb A1C was 7.1 (12/10/2023) Assessment/Plan: JLV chart reviewed 1.Atrial fibrillation 2.Chronic obstructive lung disease 3.Type 2 diabetes mellitus without complication 4. Hypertension 5.Coronary artery disease coronary artery without angina pectoris # Chronic illnesses stable, no concerns during this visit At this visit I have reviewed the medication list,updated, and discussed relevant medications with the . Denies further questions. RTC with PCP in 1 year/ HERMELINDAN /suleman/ YVES TSE CNP NP [facility] Signed: 01/03/2024 19:28 YVES TSE [facility] Dec 27, 2023 08:56 AM PRIMARY CARE NURSING NOTE: LOCAL TITLE: [facility]OC NURSING PROGRESS NOTE STANDARD TITLE: PRIMARY CARE NURSING NOTE DATE OF NOTE: DEC 27, 2023@08:56 ENTRY DATE: DEC 27, 2023@08:56:36 AUTHOR: EKATERINA WARD COSIGNER: URGENCY: STATUS: COMPLETED TYPE OF VISIT: Appointment Check In Type of appointment: In-person appointment REASON FOR VISIT: Transfer of Care from [facility] ALLERGIES: LISINOPRIL (Oct 18, 2018) PROPARACAINE (Nov 15, 2018) FLURESS (Nov 15, 2018) FML FORTE (FLUOROMETHOLONE 0.25%) (Jul 18, 2019) VITAL SIGNS: Blood Pressure: 102/58 (12/27/2023 08:55) Pulse: 75 (12/27/2023 08:55) Respiration: 20 (12/27/2023 08:55) Temperature: 97.1 F [36.2 C] (12/27/2023 08:55) Weight: 200.5 lb [90.95 kg] (12/27/2023 08:55) Height: 68 in [172.7 cm] (12/27/2023 08:55) BMI: 30.5 O2 Sat: 95% (12/27/2023 08:55) Pain: 0 (12/27/2023 08:55) PAIN SCREEN: Patient is not having significant pain that they wish to discuss with their provider today. 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 [place] has no concerns about toxic exposure(s) while serving in the Armed [place]. The [place]/caregiver was informed that we will continue to ask this screening question every 5 years. They can contact their provider/healthcare team if they have concerns about exposures and would like to be screened sooner. Printed information was offered and provided if desired. COVID-19 Immunization: Refused Pfizer Monovalent COVID-19 vaccine Immunization: COVID-19 ([employer]), MRNA, LNP-S, PF, NANDINI-SUCROSE, 30 MCG/0.3 ML (AGES 12+ YEARS) Refusal Reason: PATIENT DECISION Patient refuses all immunization(s) in the COVID-19 group Date Documented: 12/27/23 08:57 Suicide Screen: C-SSRS Screening [place] Suicide Severity Rating Scale (C-SSRS) screener 1. Over the past month, have you wished you were or wished you could go to sleep and not wake up? No 2. Over the past month, have you had any actual thoughts of killing yourself? No 3. Over the past month, have you been thinking about how you might do this? Response not required due to responses to other questions. 4. Over the past month, have you had these thoughts and had some intention of acting on them? Response not required due to responses to other questions. 5. Over the past month, have you started to work out or worked out the details of how to kill yourself? Response not required due to responses to other questions. 6. If yes, at any time in the past month did you intend to carry out this plan? Response not required due to responses to other questions. 7. In your lifetime, have you ever done anything, started to do anything, or prepared to do anything to end your life (for example, collected pills, obtained a gun, gave away valuables, went to the roof but didn't jump)? No 8. If YES, was this within the past 3 months? Response not required due to responses to other questions. Influenza Immunization: The patient declines to receive the recommended dose of seasonal influenza vaccine. Immunization: INFLUENZA, UNSPECIFIED FORMULATION Refusal Reason: PATIENT DECISION Patient refuses all immunization(s) in the FLU group Date Documented: 12/27/23 08:58 Depression Screening: Perform PHQ-2 A PHQ-2 screen was performed. The score was 0 which is a negative screen for depression. Over the past two weeks, how often have you been bothered by the following problems? 1. Little interest or pleasure in doing things Not at all 2. Feeling down, depressed, or hopeless Not at all Alcohol Use Screen (AUDIT-C): Alcohol Screen: SCREEN FOR ALCOHOL (AUDIT-C) An alcohol screening test (AUDIT-C) was negative (score=0). 1. How often did you have a drink containing alcohol in the past year? Consider a drink to be a 12 ounce can or bottle of regular beer, 8 ounces of malt liquor, a 5 ounce glass of table wine, or a 1.5 ounce shot of liquor (like scotch, gin, or vodka). Never 2. How many drinks containing alcohol did you have on a typical day when you were drinking in the past year? Response not required due to responses to other questions. 3. How often did you have six or more drinks on one occasion in the past year? Response not required due to responses to other questions. PTSD Screening: PC-PTSD-5 A PTSD screening test (PC-PTSD-5) was negative (score=0). IN THE PAST MONTH, have you ever had any experience that was so frightening, horrible or traumatic. For example: A serious accident or fire a physical or sexual assault or abuse An earthquake or flood A war Seeing someone be killed or seriously injured Having a loved one through homicide or suicide 1. Have you ever experienced this kind of event? NO 2. Had nightmares about the event(s) or thought about the event(s) when you did not want to? Response not required due to responses to other questions. 3. Tried hard not to think about the event(s) or went out of your way to avoid situations that reminded you of the event(s)? Response not required due to responses to other questions. 4. Been constantly on guard, watchful, or easily startled? Response not required due to responses to other questions. 5. [place] numb or detached from people, activities, or your surroundings? Response not required due to responses to other questions. 6. [place] guilty or unable to stop blaming yourself or others for the event(s) or any problems the event(s) may have caused? Response not required due to responses to other questions. Nursing Annual Screening: Fall History Screen During the past 12 months, have you had any falls? Patient does not report any falls in the past 12 months. MEDICATIONS: Patient is on one of the following medication classes: Antihypertensives, Antidepressants, Antipsychotics, Diuretics, or Controlled substance medication used for pain. Script Talk Screen Are you able to read your prescription bottles with your glasses, magnifiers or other aids? Yes or patient not taking any prescriptions. Skin Screen Patient reports any current pressure ulcers, a history of pressure ulcers, or a wound from a medical transcription editor or Patient is bed-confined or a wheelchair-user or Patient requires assistance to transfer/change position No, Skin Screen is Negative Home Abuse/Violence Screen Is your home free of abuse and violence? Yes MOVE! Program Screen Body Mass Index (BMI)= 30.5 [place]: Collection DT Specimen Test Name Result Units Ref Range 10/30/2019 08:50 BLOOD HEMOGLOBIN A1C 7.7 H % 4.0 - 6.0 [place] Hgb A1C: No data available [place] Hgb A1C: No data available Point of Care Hgb A1C: POC HGB A1C____ Outpatient Nutrition Screen Body Mass Index (BMI)= 30.5 [place]: Collection DT Specimen Test Name Result Units Ref Range 10/30/2019 08:50 BLOOD HEMOGLOBIN A1C 7.7 H % 4.0 - 6.0 [place] Hgb A1C: No data available [place] Hgb A1C: No data available Point of Care Hgb A1C: POC HGB A1C____ Is patient's BMI less than 18.5? No Does patient have swallowing, coughing, or chewing problems affecting oral intake? No Has patient experienced unplanned weight loss or gain greater than 10 pounds over the last 2 months? No Is patient's Hgb A1C (Glycosylated Hemoglobin) greater than 9.5? No Is patient receiving Total Parenteral Nutrition (TPN) or Tube Feedings? No Patient Health Education Screen BARRIERS/SPECIAL NEEDS: No barriers identified PREFERRED STYLE OF LEARNING: No preference stated Client Assistive Service (SUSANNE) Screen Does the patient require assistance with outpatient visit? No Tobacco Use Screening: The patient is a former tobacco user. The patient quit fifteen or more years ago. Td / Tdap Immunization: The patient declines to receive the recommended dose of Td/Tdap vaccine. Immunization: TD(ADULT) UNSPECIFIED FORMULATION Refusal Reason: PATIENT DECISION Patient refuses all immunization(s) in the Td group Date Documented: 12/27/23 09:00 Homelessness/Food Insecurity Screen: In the past 2 months, have you been living in stable housing that you own, rent, or stay in as part of a household? Yes - Living in stable housing. Are you worried or concerned that in the next 2 months you may NOT have stable housing that you own, rent, or stay in as part of a household? No - Not worried about housing near future The [place] reports the following: Within the past 12 months, you worried whether your food would run out before you got money to buy more. Never true Within the past 12 months, the food you bought just didn't last and you didn't have money to get more. Never true Food Insecurity Resources /es/ Ekaterina Ward LPN Signed: 12/27/2023 09:01 EKATERINA WARD [facility]
--- OUTSIDE RECORDS SUMMARY | 2024-03-03 20:37 | XMS_ITS | Continuity of Care Document ---
Author Name [facility] Organization [facility] Care Team Providers Care Fermentation Operator Name Role Phone [facility] Unavailable Unavailable Problems Combined list of problems from Department of [facility] and Veterans Affairs facilities. It does not include entries that were removed or entered in error. Problem Status Onset Date Problem Type Date of Resolution Comments Source Atrial fibrillation [facility] Chronic kidney disease stage 4 Active Condition [facility] Chronic obstructive lung disease Active Condition Dec 12, 2018 Entered By: ELA ARIAS Comment: 08/22/2018: FEV1 1.47 L (64%) FVC 2.27 L (59%) [facility] Coronary artery disease (SNOMED CT 77698208) Active Condition Sep 20, 2017 Entered By: ELA ARIAS Comment: PCI with stent placement remotely. [facility] History of total knee arthroplasty Active Condition Sep 20, 2017 Entered By: ELA ARIAS Comment: Left TKA 03/2017, complicated by inadequate postop PT. [facility] Hypercholesterolemia * (ICD-9-CM 272.0) [facility] Hypertension (SNOMED CT 36175324) Active Condition [facility] Personal History of Colonic Polyps (ICD-9-CM V12.72) Active Condition [facility] Sensorineural Hearing Loss * (ICD-9-CM 389.10) Active Condition [facility] Tinnitus * (ICD-9-CM 388.30) Active Condition [facility] Type 2 diabetes mellitus without complication (SNOMED CT 313686478) Active Condition [facility] General health fair Inactive Condition 08/15/2022 [facility] Diagnosis: ICD-10-CM I48.91 Unspecified atrial fibrillation Active Diagnosis [facility] Diagnosis: ICD-10-CM J06.9 Acute upper respiratory infection, unspecified Active Diagnosis [facility] Medications Combined list of outpatient medications from Department of Defense and Veterans Affairs facilities.Medications provided include 1) outpatient medications from the last 15 months, and 2) patient-reported medications. Medication Details Route Status Patient Instructions Prescription Expires Prescription Number Last Dispense Date Ordering Provider Order Date Order Qty Source ACETAMINOPH EN 325MG TAB TAKE ONE TABLET BY MOUTH Q6H PRN ORALLY ACTIVE ASIMDIANE ER A 2007 [facility] ATORVASTATI N CA 40MG TAB TAKE ONE TABLET BY MOUTH AT BEDTIME FOR CHOLESTE ROL ORALLY ACTIVE 12/27/2024 [id number] Anna TSEISTINE N 2023 90 [facility] ATORVASTATI N CA 40MG TAB TAKE ONE TABLET BY MOUTH AT BEDTIME FOR CHOLESTE ROL ORALLY DISCONT INUED 12/19/2023 [id number] SERJIO MOYA R 2022 90 [facility] CALCITRIOL 0.25MCG CAP TAKE ONE CAPSULE BY MOUTH SUNDAY, Y AND SUNDAY FOR SECONDAR Y HYPERPAR ATHYROID ISM ORALLY ACTIVE 07/20/2024 [id number] 3 WILIANSYLV IA O 2022 39 [facility] GLIPIZIDE 5MG TAB TAKE ONE TABLET BY MOUTH EVERY DAY 30 MINUTES BEFORE MEAL FOR DIABETES ORALLY ACTIVE 11/02/2024 [id number] 4 WILIANSYLV IA O 2023 90 [facility] GLIPIZIDE 5MG TAB TAKE ONE TABLET BY MOUTH EVERY DAY 30 MINUTES BEFORE MEAL FOR DIABETES ORALLY DISCONT INUED 12/14/2023 [id number] 3 WILIANSYLV IA O 2022 90 [facility] GUAIFENESIN 600MG TAB,SA TAKE ONE TABLET BY MOUTH TWICE A DAY ORALLY SUSPEND ED 07/01/2024 [id number] 4 SHERITA WASHINGTON 2022 200 [facility] GUAIFENESIN 600MG TAB,SA TAKE ONE TABLET BY MOUTH TWICE A DAY ORALLY DISCONT INUED 06/01/2023 [id number] 3 SHERITA WASHINGTON 2021 200 [facility] METOPROLOL TARTRATE 50MG TAB TAKE ONE TABLET BY MOUTH TWICE A DAY FOR BLOOD PRESSURE ORALLY ACTIVE 11/02/2024 [id number] SHERITA WASHINGTON Leonardo 2023 180 [facility] METOPROLOL TARTRATE 50MG TAB TAKE ONE TABLET BY MOUTH TWICE A DAY FOR BLOOD PRESSURE ORALLY DISCONT INUED 11/04/2023 [id number] 3 SHERITA WASHINGTON Leonardo 2022 180 [facility] OLODATEROL 2.5MCG/TIOT ROPIUM 2.5MCG/ACTU AT [facility],ORAL,6 0D,4GM INHALE 2 PUFFS BY INHALATI ON EVERY DAY TO PREVENT TROUBLE BREATHIN G INHALA TION ACTIVE 05/25/2024 [id number] 4 SKIPSHERITA SOSA Leonardo 2022 3 [facility] OLODATEROL 2.5MCG/TIOT ROPIUM 2.5MCG/ACTU AT [facility],ORAL,6 0D,4GM INHALE 2 PUFFS BY INHALATI ON EVERY DAY TO PREVENT TROUBLE BREATHIN G INHALA TION DISCONT INUED 04/22/2023 [id number] PADMINI SHERITA Leonardo 2021 3 [facility] OMEPRAZOLE 20MG CAP,EC TAKE ONE CAPSULE BY MOUTH EVERY DAY -TAKE ON AN EMPTY STOMACH, AT LEAST 30 MINUTES PRIOR TO A MEAL FOR STOMACH ACID ORALLY ACTIVE 12/24/2024 [id number] SERJIO MOYA 2023 90 [facility] OMEPRAZOLE 20MG CAP,EC TAKE ONE CAPSULE BY MOUTH EVERY DAY -TAKE ON AN EMPTY STOMACH, AT LEAST 30 MINUTES PRIOR TO A MEAL FOR STOMACH ACID ORALLY DISCONT INUED 12/19/2023 [id number] 3 SERJIO MOYA 2022 90 [facility] RIVAROXABAN 15MG TAB TAKE ONE TABLET BY MOUTH EVERY DAY WITH A MEAL TO PREVENT AND/OR TREAT BLOOD CLOTS/[facility] ORALLY ACTIVE 08/14/2024 [id number] 4 FRANCIS GUSMAN 2022 90 [facility] RIVAROXABAN 15MG TAB TAKE ONE TABLET BY MOUTH EVERY DAY WITH A MEAL TO PREVENT AND/OR TREAT BLOOD CLOTS/[facility] ORALLY DISCONT INUED 08/09/2023 [id number] 3 POEPPINGFRANCIS L 2021 90 [facility] Allergies, Adverse Reactions, Alerts Combined list of allergies from Department of [facility] and Veterans Affairs facilities. It does not include entries that were removed or entered in error. Substance Category Reaction Severity Reaction type Status Date Reported Comments Source FLURESS Propensity to adverse reactions to drug (finding) ANGIOEDEMA OF EYELIDS active [facility] FML FORTE (FLUOROMETHO LONE 0.25%) Propensity to adverse reactions to drug (finding) Swelling of structure of eye active [address] [facility] LISINOPRIL Propensity to adverse reactions to drug (finding) Cough active [address] [facility] PROPARACAINE Propensity to adverse reactions to drug (finding) ANGIOEDEMA OF EYELIDS active 9 [facility] Immunizations Combined list of available immunizations from the Department of [facility] and Veterans Affairs facilities. Immunization Series Date Given Administered By Site Reaction Lot Number CVX Code Drug Instructional Services Librarian Status Comments Source COVID-19 (Veeva), MRNA, LNP-S, PF, 30 MCG/0.3 ML DOSE 2 2020 208 complet ed PFR; [id number]; 1 [facility] COVID-19 (Veeva), MRNA, LNP-S, PF, 30 MCG/0.3 ML DOSE 1 2020 208 complet ed PFR; [id number]; 1 [facility] INFLUENZA, HIGH DOSE SEASONAL 2018 135 complet ed [facility]OST[facility] RECOMBINANT 2 2018 187 complet ed [facility] ZOSTER RECOMBINANT 1 2017 187 complet ed [facility] INFLUENZA, SEASONAL, INJECTABLE 2017 141 complet ed [facility] INFLUENZA, HIGH DOSE SEASONAL 2016 135 complet ed [facility] PNEUMOCOCCAL CONJUGATE PCV 13 2015 133 complet ed [facility] INFLUENZA, HIGH DOSE SEASONAL 2014 135 complet ed [facility] INFLUENZA, UNSPECIFIED FORMULATION 2012 88 complet ed [facility] TDAP 2012 115 complet ed glaxosmit [id number] 9r,01/11/16 [facility] ZOSTER LIVE 2011 121 complet ed merck 12/09/2012, 1733aa [facility] INFLUENZA, UNSPECIFIED FORMULATION 2011 88 complet ed [facility] INFLUENZA, UNSPECIFIED FORMULATION 2010 88 complet ed [facility] INFLUENZA, UNSPECIFIED FORMULATION 2009 88 complet ed per pt [facility] INFLUENZA, UNSPECIFIED FORMULATION 2008 88 complet ed private clinic [facility] INFLUENZA, UNSPECIFIED FORMULATION 2007 88 complet ed private [facility] INFLUENZA (HISTORICAL) 2006 88 complet ed [facility] PNEUMOCOCCAL, UNSPECIFIED FORMULATION 2006 109 complet ed [facility] TD(ADULT) UNSPECIFIED FORMULATION 2005 139 complet ed [facility] Results Combined list of recent chemistry, hematology and other laboratory results from Department of Defense and Veterans Affairs, ranging from 15 months to all on record, depending upon the facility. Order Name Results Value Reference Range Date Interpretation Specimen Comments Source CREATI NINE(I NCLUDE S EGFR) CREATININE [MASS/VOLUME ] IN SERUM OR PLASMA 2.2 0.7 - 1.2 05/10 H Specimen Type: PLASMA No comment entered. Ordering Provider: LAKHWINDER GOEL Report Released Date/Time: Apr 09, 2023 01:32 PM Reporting Lab: [facility] [address] Performing Lab: [facility] [address] [facility] CREATI NINE(I NCLUDE S EGFR) GLOMERULAR FILTRATION RATE/1.73 SQ M.PREDICTED [VOLUME RATE/AREA] IN SERUM, PLASMA OR BLOOD BY CREATININE-B ASED FORMULA (CKD-EPI 2020) 29 05/10 L Specimen Type: PLASMA No comment entered. Ordering Provider: LAKHWINDER GOEL Report Released Date/Time: Apr 09, 2023 01:32 PM Reporting Lab: [facility] [address] Performing Lab: [facility] [address] [place] [facility] AST/SG OT ASPARTATE AMINOTRANSFE RASE [ENZYMATIC ACTIVITY/VOL UME] IN SERUM OR PLASMA 14 05/10 Specimen Type: PLASMA No comment entered. Ordering Provider: LAKHWINDER GOEL Report Released Date/Time: Apr 09, 2023 01:32 PM Reporting Lab: [facility] [address] Performing Lab: [facility] [address] [place] [facility] ALT/SG PT ALANINE AMINOTRANSFE RASE [ENZYMATIC ACTIVITY/VOL UME] IN SERUM OR PLASMA 14 05/10 Specimen Type: PLASMA No comment entered. Ordering Provider: LAKHWINDER GOEL Report Released Date/Time: Apr 09, 2023 01:32 PM Reporting Lab: [facility] [address] Performing Lab: [facility] [address] [facility] CBC LEUKOCYTES [#/VOLUME] IN BLOOD BY AUTOMATED COUNT 7.14 4.0 - 11.0 05/10 Specimen Type: BLOOD No comment entered. Ordering Provider: LAKHWINDER GOEL Report Released Date/Time: Apr 09, 2023 01:32 PM Reporting Lab: [facility] [address] Performing Lab: [facility] [address] [facility] CBC ERYTHROCYTES [#/VOLUME] IN BLOOD BY AUTOMATED COUNT 4.21 4.6 - 6.2 05/10 L Specimen Type: BLOOD No comment entered. Ordering Provider: LAKHWINDER GOEL Report Released Date/Time: Apr 09, 2023 01:32 PM Reporting Lab: [facility] [address] Performing Lab: [facility] [address] [facility] CBC HEMOGLOBIN [MASS/VOLUME ] IN BLOOD 12.4 13.5 - 17.9 05/10 L Specimen Type: BLOOD No comment entered. Ordering Provider: LAKHWINDER GOEL Report Released Date/Time: Apr 09, 2023 01:32 PM Reporting Lab: [facility] [address] Performing Lab: [facility] [address] [facility] CBC HEMATOCRIT [VOLUME FRACTION] OF BLOOD BY AUTOMATED COUNT 40.8 41 - 54 05/10 L Specimen Type: BLOOD No comment entered. Ordering Provider: LAKHWINDER GOEL Report Released Date/Time: Apr 09, 2023 01:32 PM Reporting Lab: [facility] [address] Performing Lab: [facility] [address] [facility] CBC MCV [ENTITIC VOLUME] BY AUTOMATED COUNT 96.9 80 - 100 05/10 Specimen Type: BLOOD No comment entered. Ordering Provider: LAKHWINDER GOEL Report Released Date/Time: Apr 09, 2023 01:32 PM Reporting Lab: [facility] [address] Performing Lab: [facility] [address] [facility] CBC MCH [ENTITIC MASS] BY AUTOMATED COUNT 29.5 27 - 33 05/10 Specimen Type: BLOOD No comment entered. Ordering Provider: LAKHWINDER GOEL Report Released Date/Time: Apr 09, 2023 01:32 PM Reporting Lab: [facility] [address] Performing Lab: [facility] [address] [facility] CBC MCHC [MASS/VOLUME ] BY AUTOMATED COUNT 30.4 32.0 - 37.5 05/10 L Specimen Type: BLOOD No comment entered. Ordering Provider: LAKHWINDER GOEL Report Released Date/Time: Apr 09, 2023 01:32 PM Reporting Lab: [facility] [address] Performing Lab: [facility] [address] [facility] CBC PLATELETS [#/VOLUME] IN BLOOD BY AUTOMATED COUNT 237 150 - 400 05/10 Specimen Type: BLOOD No comment entered. Ordering Provider: LAKHWINDER GOEL Report Released Date/Time: Apr 09, 2023 01:32 PM Reporting Lab: [facility] [address] Performing Lab: [facility] [address] [facility] CBC PLATELET MEAN VOLUME [ENTITIC VOLUME] IN BLOOD BY AUTOMATED COUNT 10.0 7.4 - 10.4 05/10 Specimen Type: BLOOD No comment entered. Ordering Provider: LAKHWINDER GOEL Report Released Date/Time: Apr 09, 2023 01:32 PM Reporting Lab: [facility] [address] Performing Lab: [facility] [address] [facility] CBC ERYTHROCYTE DISTRIBUTION WIDTH [RATIO] BY AUTOMATED COUNT 15.0 11.5 - 14.5 05/10 H Specimen Type: BLOOD No comment entered. Ordering Provider: LAKHWINDER GOEL Report Released Date/Time: Apr 09, 2023 01:32 PM Reporting Lab: [facility] [address] Performing Lab: [facility] [address] [facility] ALT/SG PT ALANINE AMINOTRANSFE RASE [ENZYMATIC ACTIVITY/VOL UME] IN SERUM OR PLASMA 11 <55 - 55 09/07 Specimen Type: PLASMA No comment entered. Ordering Provider: ANDRADE GUSMAN Report Released Date/Time: Aug 08, 2022 09:12 AM Reporting Lab: [facility] [address] Performing Lab: [facility] [address] [facility] AST/SG OT ASPARTATE AMINOTRANSFE RASE [ENZYMATIC ACTIVITY/VOL UME] IN SERUM OR PLASMA 13 <34 - 34 09/07 Specimen Type: PLASMA No comment entered. Ordering Provider: ANDRADE GUSMAN Report Released Date/Time: Aug 08, 2022 09:12 AM Reporting Lab: [facility] [address] Performing Lab: [facility] [address] [facility] CREATI NINE(I NCLUDE S EGFR) CREATININE [MASS/VOLUME ] IN SERUM OR PLASMA 2.1 0.7 - 1.2 09/07 H Specimen Type: PLASMA No comment entered. Ordering Provider: ANDRADE GUSMAN Report Released Date/Time: Aug 08, 2022 09:12 AM Reporting Lab: [facility] [address] Performing Lab: [facility] [address] [facility] CREATI NINE(I NCLUDE S EGFR) GLOMERULAR FILTRATION RATE/1.73 SQ M.PREDICTED [VOLUME RATE/AREA] IN SERUM, PLASMA OR BLOOD BY CREATININE-B ASED FORMULA (CKD-EPI) 31 60 09/07 L Specimen Type: PLASMA No comment entered. Ordering Provider: ANDRADE GUSMAN Report Released Date/Time: Aug 08, 2022 09:12 AM Reporting Lab: [facility] [address] Performing Lab: [facility] [address] [facility] CBC LEUKOCYTES [#/VOLUME] IN BLOOD BY AUTOMATED COUNT 6.77 4.0 - 11.0 09/07 Specimen Type: BLOOD No comment entered. Ordering Provider: ANDRADE GUSMAN Report Released Date/Time: Aug 08, 2022 09:12 AM Reporting Lab: [facility] [address] Performing Lab: [facility] [address] [facility] CBC ERYTHROCYTES [#/VOLUME] IN BLOOD BY AUTOMATED COUNT 4.03 4.6 - 6.2 09/07 L Specimen Type: BLOOD No comment entered. Ordering Provider: ANDRADE GUSMAN Report Released Date/Time: Aug 08, 2022 09:12 AM Reporting Lab: [facility] [address] Performing Lab: [facility] [address] [facility] CBC HEMOGLOBIN [MASS/VOLUME ] IN BLOOD 13.2 13.5 - 17.9 09/07 L Specimen Type: BLOOD No comment entered. Ordering Provider: ANDRADE GUSMAN Report Released Date/Time: Aug 08, 2022 09:12 AM Reporting Lab: [facility] [address] Performing Lab: [facility] [address] [facility] CBC HEMATOCRIT [VOLUME FRACTION] OF BLOOD BY AUTOMATED COUNT 40.1 41 - 54 09/07 L Specimen Type: BLOOD No comment entered. Ordering Provider: ANDRADE GUSMAN Report Released Date/Time: Aug 08, 2022 09:12 AM Reporting Lab: [facility] [address] Performing Lab: [facility] [address] [place] [facility] CBC MCV [ENTITIC VOLUME] BY AUTOMATED COUNT 99.5 80 - 100 09/07 Specimen Type: BLOOD No comment entered. Ordering Provider: ANDRADE GUSMAN Report Released Date/Time: Aug 08, 2022 09:12 AM Reporting Lab: [facility] [address] Performing Lab: [facility] [address] [facility] CBC MCH [ENTITIC MASS] BY AUTOMATED COUNT 32.8 27 - 33 09/07 Specimen Type: BLOOD No comment entered. Ordering Provider: ANDRADE GUSMAN Report Released Date/Time: Aug 08, 2022 09:12 AM Reporting Lab: [facility] [address] Performing Lab: [facility] [address] [facility] CBC MCHC [MASS/VOLUME ] BY AUTOMATED COUNT 32.9 32.0 - 37.5 09/07 Specimen Type: BLOOD No comment entered. Ordering Provider: ANDRADE GUSMAN Report Released Date/Time: Aug 08, 2022 09:12 AM Reporting Lab: [facility] [address] Performing Lab: [facility] [address] [facility] CBC PLATELETS [#/VOLUME] IN BLOOD BY AUTOMATED COUNT 214 150 - 400 09/07 Specimen Type: BLOOD No comment entered. Ordering Provider: ANDRADE GUSMAN Report Released Date/Time: Aug 08, 2022 09:12 AM Reporting Lab: [facility] [address] Performing Lab: [facility] [address] [place] [facility] CBC PLATELET MEAN VOLUME [ENTITIC VOLUME] IN BLOOD BY AUTOMATED COUNT 10.1 7.4 - 10.4 11/03 /2022 Specimen Type: BLOOD No comment entered. Ordering Provider: ANDRADE GUSMAN Report Released Date/Time: Aug 08, 2022 09:12 AM Reporting Lab: [facility] [address] Performing Lab: [facility] [address] [facility] CBC ERYTHROCYTE DISTRIBUTION WIDTH [RATIO] BY AUTOMATED COUNT 14.4 11.5 - 14.5 09/07 Specimen Type: BLOOD No comment entered. Ordering Provider: ANDRADE GUSMAN Report Released Date/Time: Aug 08, 2022 09:12 AM Reporting Lab: [facility] [address] Performing Lab: [facility] [address] [facility] Vital Signs Combined list of inpatient and outpatient Vital Signs from Department of Defense and Veterans Affairs, ranging from 12 months to all on record, depending upon the facility. Vital Sign Value Date Comments Source Encounters Combined list of: 1) Encounters from Department of Veterans Affairs facilities going back up to thelast 18 months. 2) Encounters from the Department of Defense facilities going back up to 280 months. Location Location Details Encounter Type Encounter Number Reason For Visit Attending Provider ADM Date DC Date Status Disposition Source [facility] Outpatient Encounter [id number] SA RA Vi TY 09[facility]11 [facility] Outpatient Encounter [id number] Diagnos is: ICD-10- CM J06.9 Acute upper respira tory infecti on, unspeci fied
LISA CEDENO 09/18 [facility] [place] [facility] Outpatient Encounter [id number] 11/02 [facility] [place] [facility] Outpatient Encounter [id number] 11/08 [facility] [place] [facility] Outpatient Encounter [id number] 11/13 [facility] [place] [facility] Outpatient Encounter [id number] 12/12 [place] [facility] [facility] [place] [facility] Out[place] Encounter [id number] 04/09 [place] [facility] [place] [facility] [place] Encounter [id number] 06/28 [place] [facility] [place] [facility] Outpatient Encounter [id number] 07/18 [place] [facility] [place] [facility] [place] Encounter [id number] 08/01 [place] [facility] [place] [facility] [place] Encounter [id number] 08/03 [place] [facility] [place] [facility] Out[place] Encounter [id number] 10/15 [place] [facility] [place] [facility] Outpatient Encounter [id number] 10/16 [place] [facility] [place] [facility] Out[place] Encounter [id number] 10/17 [place] [facility] [place] [facility] Out[place] Encounter [id number] 12/10 [place] [facility] Outpatient Encounter [id number] Diagnos is: ICD-10- CM I48.91 Unspeci fied atrial fibrill ation<b r/> EMMA TSE RISTINE N 12/27 [facility] Social History Combined list of available smoking, tobacco, and other social history from Department of Defense and Veterans Affairs facilities. Social History Type Response Date Comment Sourc e Tobacco smoking status NVIS [facility]ACCO FORMER USER 12/27/2023 [facility] History of tobacco use VA-TOBACCO QUIT 1 5 YRS OR MORE 12/27/2023 [facility] History of tobacco use VA-TOBACCO QUIT 1 5 YRS OR MORE 10/06/2019 [facility] History of tobacco use VA-TOBACCO FORMER USER 09/05/2018 [facility] History of tobacco use FORMER TOBACCO US ER 7Y OR GREATER 09/20/2017 [facility] History of tobacco use FORMER TOBACCO US ER 7Y OR GREATER 04/07/2016 [facility] History of tobacco use FORMER TOBACCO US ER 7Y OR GREATER 03/05/2015 [facility] History of tobacco use LIFETIME NON-TOBA VISUAL LEAD USER 03/06/2014 [facility] History of tobacco use FORMER TOBACCO US ER 7Y OR GREATER 10/22/2007 [facility] Advance Directives List of completed, amended, or rescinded Advance Directives on record at Department of Veterans Affairs facilities. An actual copy of the Directive is not included. Date Advance Directive Provider Source 10/22/2007 ADVANCE DIRECTIVE DIALLO RINCON [facility]
--- OUTSIDE RECORDS SUMMARY | 2024-03-03 20:37 | XMS_ITS | Encounter Summary ---
Author Name [facility] Organization [facility] of [facility] Address [address] [place] [address] Support Name Relationship Address Phone KERRI MARTIN Next of Kin [address] [place] [phone] KERRI MARTIN Emergency Contact [address] [place] [address] Insurance Providers: All historical and current Section [...] Patient's Relationship to Policy Jerez [facility] (WNR) MEDICARE ADVANTAGE [facility] (WNR) Nov 05, 2019 [id number] JAGRUTI MARTIN PATIENT [facility] [place] [facility] (WNR) MEDICARE ADVANTAGE [facility] (WNR) Jul 06, 2009 [id number] VERONICA,JAGRUTI ESQUIVELSANJU PATIENT Selected Encounter This section includes the information on record at DC for the Encounter. Date/Time Encounter Type Encounter Description Reason Pro vider Source Dec 10, 2023 11:38 AM Outpatient Encounter CLINICAL PHARMACY [facility] Encounter Template Text not used by DC Plan of Treatment: Future Appointments (+ 6 months) and Future Tests (+/- 45 days) The Plan of Treatment section includes future care activities for the patient from all [place] treatmentfacilities. This section includes future appointments and future orders which are active, pending or scheduled. Future Appointments This section includes appointments that were scheduled to occur 6 months from the date of the Encounter, up to a maximum of 20 appointments. The data comes from all [facility]. Appointment Date/Time Appointment Type Appointme nt Facility Name Dec 27, 2023 09:00 AM AMBULATORY - MEDICINE [facility] Dec 27, 2023 10:20 AM AMBULATORY - MEDICINE [facility] Active, Pending, and Scheduled Orders This section includes a listing of several types of active, pending, and scheduled orders, including clinic medications orders, diagnostic test orders, procedure orders and consult orders; where the start date of the order is 45 days before the date of the Encounter or 45 days after the date of theEncounter. The data comes from all [facility]. Test Date/Time Test Type Test Details Facility Name Dec 27, 2023 10:00 AM Laboratory - Chemi stry Order CBC BLOOD [facility] Dec 27, 2023 10:00 AM Laboratory - Chemi stry Order CREATININE(INCLUDES EGFR) PLASMA [facility] Dec 27, 2023 10:00 AM Laboratory - Chemi stry [facility] Dec 27, 2023 10:00 AM Laboratory - Chemi stry [facility] Social History: Smoking Status (Most current) and Tobacco Use (All prior to encounter date) This section includes the most current, and the historical, smoking and tobacco- related health factors from the [place] facility where the Encounter took place. Current Smoking Status This section includes the most current smoking, or tobacco-related health factor, from the [place] facility where the Encounter took place. Date/Time Current Smoking Status Comment Facil ity Oct 06, 2019 10:08 AM DC-TOBACCO QUIT 15 YRS OR MORE [facility] Tobacco Use History This section includes a history of the smoking, or tobacco-related health factors, that were collected on or before the date of the Encounter. The data comes from the [place] facility where the Encounter took place. Date/Time Smoking Status/Tobacco Use Comment F acility Oct 06, 2019 10:08 AM DC-TOBACCO QUIT 15 YRS OR MORE [facility] Sep 05, 2018 10:24 AM VA-TOBACCO FORMER USER [facility] Sep 05, 2018 10:24 AM DC-TOBACCO QUIT 15 YRS OR MORE [facility] Sep 20, 2017 01:16 PM FORMER TOBACCO USER 7Y OR GREATE R [facility] Apr 07, 2016 11:13 AM FORMER TOBACCO USER 7Y OR GREATE R [facility] March 05, 2015 01:06 PM FORMER TOBACCO USER 7Y OR GREATE R [facility] March 06, 2014 01:32 PM LIFETIME NON-TOBACCO USER [facility] Oct 22, 2007 11:55 AM FORMER TOBACCO USER 7Y OR STASE R [facility] Advance Directives: All historical and current Section Date Range: From patient's date of to the date document was created. This section includes ALL of a patient's completed or amended [place] Advance and Rescinded Directives. The entries below indicate that a directive exists for the patient, but an actual copy is not included with this document. The data comes from all [place] facilities. Date Advance Directives Provider Source Oct 22, 2007 ADVANCE DIRECTIVE DIALLO RINCON [facility] Encounter Notes: All associated encounter notes This section contains the clinical notes associated to the Encounter. Date/Time Encounter Note(s) Provider Source Dec 10, 2023 11:39 AM LETTERS: LOCAL TITLE: FOLLOW UP RESULTS LETTER STANDARD TITLE: LETTERS DATE OF NOTE: DEC 10, 2023@11:39 ENTRY DATE: DEC 10, 2023@11:39:05 AUTHOR: CHIO TREJO COSIGNER: URGENCY: STATUS: COMPLETED SUBJECT: anticoag [facility] [address] [place] [address] Dec PIETRO PÉREZ VERONICA [address] [facility] [address] [place]: We are following up on your anticoagulant (blood thinner) medication, Rivaroxaban. We require non-fasting labs (complete blood count, serum creatinine, liver function) every 6-12 months to ensure your anticoagulant is safe to continue. The complete blood count measures hemoglobin and platelets, which can alert us to possible bleeding issues. The creatinine measures kidney function and helps us determine the correct medication dose. The liver function monitors that your liver is working well. You are due for labs. We scheduled your lab appointment for Dec at 10:00am in [facility] to coordinate with another appointment. Please report to the lab area for this appointment. If you would like to change this appointment, please call us at [phone], option 1. We hope you are doing well. Thank you for your service. Sincerely, [facility] Team - Phone number: [phone] -option 1 to schedule or reschedule an appointment -option 2 to refill medications or call the phone number on the bottle -option 3 for all other communication Fax number: [phone] Clinic Hours: Sunday-Sunday, 8:00am to 4:00pm (excluding Federal holidays) CHIO TREJO CLINICAL STRIPPER AND TAPER CHIO TREJO [facility]
== END 2024-03-03 20:33 | disposition home or self-care (01) ==
LOC: SLEEP 20:34
PROVIDERS: PCP Family Medicine; Visit Provider Internal Medicine
DX: G47.33 Obstructive sleep apnea (adult) (pediatric) (principal)
CPT/HCPCS: 95811